=== PATIENT | male | born 1950 | race Caucasian/White ===

== ENCOUNTER 2024-04-05 03:18 | Inpatient (IN) ==
--- OUTSIDE RECORDS SUMMARY | 2024-04-05 03:23 | External Medical Summary | Summary of Care ---
Author Name Unknown Organization [facility] Address [address] [place] [address] Phone [phone] Care Team Providers Care Electronics Technician Name Role Phone Erika Matthews MD Primary Care Provider [phone] Reason for Visit * Reason Comments eRx-Medication Refill Encounter Details Date Type Department Care Team (Late st Contact Info) Description 03/30/2024 Refill Formerly [facility] [address] [place] [address] Erika Matthews MD [address] [place] [address] Acquired hypothyroidism Allergies Active Allergy Reactions Criticality Noted Date Comments Metformin Nausea/vomiting Medium 02/12/2023 Prednisone Nausea/vomiting 07/01/2014 Sulfate 05/19/2007 GI upset documented as of this encounter (statuses as of 03/31/2024) Medications Medication Sig Dispensed Refills Start Date End Date Status ASPIRIN 81 MG PO CHEWIndications:Rou emily medical exam One pill by mouth once a day with food 100 Tab 5 0 Active Additional Information Patient taking differently:[id number], Reported on 08/14/2023 Cholecalciferol (VITAMIN D) 1000 units TabletIndications:V itamin D deficiency 1 tab 4-5 days per week 30 Tab 1 8 Active ONETOUCH DELICA LANCETS 33G MISC Use to test blood sugar up to 4 times per day. May substitute preferred brand. Dx. E 11.9 100 Each 5 9 Active Additional Information Patient not taking.Reported on 08/20/2023 Glucose Blood (Performance LabTOUCH VERIO) STRP Use to test blood sugar up to 4 times per day. May substitute preferred brand. Dx. E 11.9 100 Strip 5 9 Active Additional Information Patient not taking.Reported on 02/19/2024 Tamsulosin HCl 0.4 MG Oral Capsule (Flomax)Indications :Obstructive uropathy Take 1 Capsule by mouth in the morning. 90 Capsule 3 3 Active Additional Information Patient taking differently:0.4 mg OralDINNER, Reported on 08/14/2023 Omeprazole 20 MG Oral Capsule Delayed Release (PriLOSEC) TAKE 1 CAP BY MOUTH DAILY. 1 HOUR BEFORE THE FIRST MEAL OF THE DAY 90 Capsule 3 3 Active Atorvastatin Calcium 40 MG Oral Tablet (Lipitor) Take 1 Tablet by mouth in the morning. 90 Tablet 3 3 Active Additional Information Patient taking differently:40 mg OralQPM-1999, Reported on 08/14/2023 Empagliflozin 25 MG Oral Tablet (Jardiance)Indicati ons:Type 2 diabetes mellitus with chronic kidney disease, without long-term current use of insulin, unspecified CKD stage (HCC) Daily 90 Tablet 3 3 Active Escitalopram Oxalate 10 MG Oral Tablet (Lexapro)Indication s:Anxiety state TAKE 1 TABLET BY MOUTH EVERY DAY 90 Tablet 1 3 Active Lisinopril 20 MG Oral Tablet (Prinivil)Indicatio ns:HTN, goal below 150/90 TAKE 1 TABLET BY MOUTH EVERY DAY 90 Tablet 2 4 Active Azithromycin 500 MG Oral Tablet (Zithromax) Take 1 Tablet by mouth. 0 4 Active Cefdinir 300 MG Oral Capsule (Omnicef) Take 1 Capsule by mouth in the morning. 0 4 Active Albuterol Sulfate HFA 108 (90 Base) MCG/ACT Inhalation Aerosol Solution Inhale 2 Puffs by mouth every 6 hours as needed (sob). 18 g 2 4 Active Levothyroxine Sodium 112 MCG Oral Tablet (Levoxyl)Indication s:Acquired hypothyroidism TAKE 1 TABLET BY MOUTH IN THE MORNING AT LEAST 30 MINUTES PRIOR TO BREAKFAST AND OTHER MEDS 90 Tablet 3 4 Active LORazepam 1 MG Oral Tablet (Ativan)Indications :Anxiety state Take 1 Tablet by mouth 3 times a day as needed for Anxiety. 10 Tablet 0 4 Active Levothyroxine Sodium 112 MCG Oral Tablet (Levoxyl)Indication s:Acquired hypothyroidism TAKE BY MOUTH 1 TABLET IN THE MORNING. (AT LEAST 30 MIN PRIOR TO BREAKFAST OR OTHER MEDS). 90 Tablet 3 3 03/31/20 24 Discontinued documented as of this encounter (statuses as of 03/31/2024) Active Problems Problem Noted Date Diagnosed Date Depression, unspecified 03/27/2024 Chronic kidney disease, stage 3a 05/07/2022 Overview: Per CKD protocol Gastroesophageal reflux disease 04/18/2022 Hypertensive kidney disease with stage 3a chronic kidney disease 10/03/2020 Overview: Per CKD protocol Anxiety state 12/16/2019 Type 2 diabetes mellitus wit h stage 3a chronic kidney disease, without long-term current use of insulin 12/16/2019 Postoperative hypothyroidism 12/16/2019 History of thyroid cancer 03/04/2019 Vitamin D deficiency 03/01/2018 Adjustment disorder with anxious mood 11/07/2016 Dyslipidemia, goal LDL below 100 05/21/2016 HTN, goal below 150/90 01/25/2015 History of tobacco use 06/26/2014 Urge incontinence 07/15/2009 ADVANCE DIRECTIVE INFORMATION 08/08/2005 Overview: No, Advance Directive brochure given to patient at prior appointment. UNILAT INGUINAL HERNIA 03/27/2004 Hypothyroidism 12/10/2003 documented as of this encounter (statuses as of 03/31/2024) Resolved Problems Problem Noted Date Diagnosed Date Resolved Date Type 2 diabetes mellitus wit h stage 3a chronic kidney disease, without long-term current use of insulin 10/28/2023 10/28/2023 Hypertensive kidney disease with chronic kidney disease stage III 09/08/2019 10/06/2020 Overview: Per CKD protocol Kidney disease, chronic, sta ge III (GFR 30-59 ml/min) 04/06/2019 10/09/2019 Overview: Per CKD protocol #1 Bronchitis, complicated 06/26/2014 04/0 03/2019 HTN (hypertension) 04/21/2013 5 H. pylori infection 2007 02/28/20 Overview: treated ABN LIVER FUNCTION STUDY 08/16/200503/2019 Cough 02/28/2005 02/27/2019 Unspecified viral infection, in conditions classified elsewhere and of unspecified site 02/28/2005 12/18/2008 ACUTE URI NOS 02/28/2005 12/18/2008 Esophageal reflux 03/24/2002 01/29/2023 Overview: DUPLICATE MALIGN NEOPL THYROID 019 documented as of this encounter (statuses as of 03/31/2024) Immunizations Name Administration Dates Next Due COVID-19 mRNA, LNP-s, No Pre serve, 2-Dose Series ([employer]) 09/04/2023,09/10/2021,02/18/2021,11/2020 Covid-19, Mrna, Lnp-s, Pf, B ivalent, 30 Mcg, IM, 12 yrs and above (Pfizer) 09/18/2022 Pneumococcal Conjugate Vacc, 13 Valent (Prevnar) 03/20/2017 Pneumococcal Polysaccharide PPV23 (Pneumovax) 10/12/2019,10/27/2007 Seasonal Influenza, PF, 6 M & above, IM , (FluLaval or Fluzone) 08/09/2020,09/08/2019,08/07/2018,12/2016 Seasonal Influenza, Quadriva lent Hd (Fluzone Hd) 07/30/2023,08/13/2022,08/14/2021 Seasonal Influenza, Quadriva lent, No Preserve, IM 09/25/2016,09/07/2015 Seasonal Influenza, Split, I IV3, With Preserve, Inj 09/07/2014,08/15/2013,08/06/2012,07/26,09/22/2010,09/10/2008,09/25/20 07 09/07/2015 TDAP (age 11 and older)(Adacel) 09/06/2018,06/02 Varicella Zoster Vaccine (Adult) 07/07/2012 Zoster Vaccine Recombinant (Shingrix) 02/07/2022 ,12/16/2019 documented as of this encounter Social History Tobacco Use Types Packs/Day Years Used Date Smoking Tobacco: Former Cigarettes Q uit: 06/04/2012 Passive Smoke Exposure: Never Smokeless Tobacco: Never Alcohol Use Standard Drinks/Week Comments Yes 0 (1 standard drink = 0.6 oz pur e alcohol) beer 2 a few times per wk PHQ-2 Answer Date Recorded PHQ Adult Total Score 0 03/19/2024 Hunger Vital Sign Answer Date Recorded Within the past 12 months, y ou worried that your food would run out before you got the money to buy more. Patient declined Within the past 12 months, t he food you bought just didn't last and you didn't have money to get more. Patient declined Sex and Gender Information Value Date Recorded Sex Assigned at Male 09/08/2019 8:12 AM EDT Gender Identity Male 09/08/2019 8:12 AM EDT Sexual Orientation Straight 09/08/2019 8: 12 AM EDT Job Start Date Occupation Industry Not on file Not on file Not on file documented as of this encounter Miscellaneous Notes * Telephone Encounter - Fran Mendez RPh - 03/31/2024 10:18 AM EDTSigned Prescriptions: Disp Refills Levothyroxine Sodium 112 MCG Oral Tablet (*90 Tab*3 Sig: TAKE 1 TABLET BY MOUTH IN THE MORNING AT LEAST 30 MINUTES PRIOR TO BREAKFAST AND OTHER MEDSAuthorizing Provider: ERIKA MATTHEWS User: FRAN MENDEZ documented in this encounter Plan of Treatment Upcoming Encounters Date Type Department Care Team (Late st Contact Info) Description 04/01/2024 11:40 AM EDT Office Visit [address] [address] Erika Matthews MD [address], [place] [id number] 06/12/2024 10:45 AM EDT Cardiac Studies Cardiac Studies, [place] [address] [place] [facility] [place] [address] 08/26/2024 8:20 AM EDT Office Visit Family Practice, [place] [address] [place] [facility] [id number] Erika Matthews MD [address] [place] [address] Health Maintenance Due Date Last Done Comments Cologuard 1996 Fecal Occult Blood Test 05/16/2003 05/16/2002 Sigmoidoscopy 11/03/2007 11/03/2002 COVID-19 Vaccine ( season) 2023 09/04/2023, 09/18/2022, 09/10/2021, Additional history exists Diabetic Eye Exam 06/03/2024 06/03/2023, , 05/08/2023, Additional history exists CKD PHOS USE SMARTSET 59440 08/21/202407/27, 04/18/2022, 01/06/2020, Additional history exists HbA1c 08/21/2024 02/19/2024, 07/27, 02/12/2023, Additional history exists GFR 09/27/2024 03/27/2024, 01/24, 10/26/2023, Additional history exists Albumin/Creatinine Ratio 02/18/2025 024, 02/12/2023, 04/18/2022, Additional history exists Diabetic Foot Exam 02/18/2025 02/19/2024, 0 02/12/2023, 09/08/2021, Additional history exists TSH 02/18/2025 02/19/2024, 09/26, 02/12/2023, Additional history exists CKD HGB USE SMARTSET 81900 03/27/202503/27, 03/27/2024, 02/19/2024, Additional history exists Colonoscopy 08/20/2026 08/20/2023, 07/27, 07/28/2020, Additional history exists Colorectal Cancer Screening 08/20/2026 Lipid Panel 02/13/2028 02/12/2023, 03/26, 04/18/2021, Additional history exists DTaP,Tdap,and Td Vaccines (3 - Td or Tdap) 09/06/2028 09/06/2018, 06/02/2008 AAA Screening Completed 10/01/2017 Pneumococcal Vaccine: 65+ Years Completed 10/12/2019, 03/20/2017, 10/27/2007 Zoster Vaccines Completed 02/07/2022, 11/26, 07/07/2012 Influenza Vaccine (FLU shot) Completed 07/30/2023, 08/13/2022, 08/14/2021, Additional history exists RETIRED - COLONOSCOPY-EVERY 5 YRS AGES 18-100 Discontinued 08/20/2023, 08/20/2023, 07/28/2020, Additional history exists GARDASIL-HPV IMMUNIZATION SERIES Aged Out No longer eligible based on patient's age to complete this topic Hepatitis B Aged Out No longer eligi ble based on patient's age to complete this topic MENINGOCOCCAL (MENACTRA/MENVEO) Aged Out No longer eligible based on patient's age to complete this topic documented as of this encounter Medical Devices Not on filedocumented as of this encounter Visit Diagnoses Diagnosis Acquired hypothyroidism Unspecified hypothyroidism documented in this encounter Care Teams Electronics Technician Relationship Specialty Start Date End Date Erika Matthews MD [address] [place] [address] PCP - General 11/29/99 documented as of this encounter
--- OUTSIDE RECORDS SUMMARY | 2024-04-05 03:23 | External Medical Summary | Summary of Care ---
Author Name Unknown Organization [facility] Address [address] [place] [address] Phone [phone] Care Team Providers Care Security Test Engineer Name Role Phone Evaristo Matthews MD Primary Care Provider [phone] Reason for Visit * Reason Comments Emergency Department Follow-Up Patient i s here today for an ED follow up. Patient states he is still having anxiety that is causing him to "jump up" in the middle of the night and he is lacking sleep. Patient states he feels bloated all of the time and he is having stomach "attacks" Encounter Details Date Type Department Care Team (Late st Contact Info) Description 04/01/2024 11:40 AM EDT Office Visit [facility] [address] [place] [address] Evaristo Matthews MD [address] [place] [address] Insomnia, unspecified type*; Anxiety state Allergies Active Allergy Reactions Criticality Noted Date Comments Metformin Nausea/vomiting Medium 02/12/2023 Prednisone Nausea/vomiting 07/01/2014 Sulfate 05/19/2007 GI upset documented as of this encounter (statuses as of 04/01/2024) Medications Medication Sig Dispensed Refills Start Date End Date Status ASPIRIN 81 MG PO CHEWIndications:Rout ine medical exam One pill by mouth once a day with food 100 Tab 5 05/24/2010 Active Additional Information Patient taking differently:[id number], Reported on 08/14/2023 Cholecalciferol (VITAMIN D) 1000 units TabletIndications:Vi tamin D deficiency 1 tab 4-5 days per week 30 Tab 1 03/01/2018 Active ONETOUCH DELICA LANCETS 33G MISC Use to test blood sugar up to 4 times per day. May substitute preferred brand. Dx. E 11.9 100 Each 5 09/23/2019 Active Additional Information Patient not taking.Reported on 08/20/2023 Glucose Blood (ONETOUCH VERIO) STRP Use to test blood sugar up to 4 times per day. May substitute preferred brand. Dx. E 11.9 100 Strip 5 09/23/2019 Active Additional Information Patient not taking.Reported on 02/19/2024 Tamsulosin HCl 0.4 MG Oral Capsule (Flomax)Indications: Obstructive uropathy Take 1 Capsule by mouth in the morning. 90 Capsule 3 02/12/2023 Active Additional Information Patient taking differently:0.4 mg OralDINNER, Reported on 08/14/2023 Omeprazole 20 MG Oral Capsule Delayed Release (PriLOSEC) TAKE 1 CAP BY MOUTH DAILY. 1 HOUR BEFORE THE FIRST MEAL OF THE DAY 90 Capsule 3 02/25/2023 Active Atorvastatin Calcium 40 MG Oral Tablet (Lipitor) Take 1 Tablet by mouth in the morning. 90 Tablet 3 03/03/2023 Active Additional Information Patient taking differently:40 mg OralQ-1999, Reported on 08/14/2023 Empagliflozin 25 MG Oral Tablet (Jardiance)Indicatio ns:Type 2 diabetes mellitus with chronic kidney disease, without long-term current use of insulin, unspecified CKD stage (HCC) Daily 90 Tablet 3 08/21/2023 Active Escitalopram Oxalate 10 MG Oral Tablet (Lexapro)Indications :Anxiety state TAKE 1 TABLET BY MOUTH EVERY DAY 90 Tablet 1 11/08/2023 Active Lisinopril 20 MG Oral Tablet (Prinivil)Indication s:HTN, goal below 150/90 TAKE 1 TABLET BY MOUTH EVERY DAY 90 Tablet 2 12/14/2023 Active Azithromycin 500 MG Oral Tablet (Zithromax) Take 1 Tablet by mouth. 0 03/15/2024 Active Cefdinir 300 MG Oral Capsule (Omnicef) Take 1 Capsule by mouth in the morning. 0 03/15/2024 Active Albuterol Sulfate HFA 108 (90 Base) MCG/ACT Inhalation Aerosol Solution Inhale 2 Puffs by mouth every 6 hours as needed (sob). 18 g 2 03/19/2024 Active Levothyroxine Sodium 112 MCG Oral Tablet (Levoxyl)Indications :Acquired hypothyroidism TAKE 1 TABLET BY MOUTH IN THE MORNING AT LEAST 30 MINUTES PRIOR TO BREAKFAST AND OTHER MEDS 90 Tablet 3 03/31/2024 Active LORazepam 1 MG Oral Tablet (Ativan)Indications: Anxiety state Take 1 Tablet by mouth 3 times a day as needed for Anxiety. 10 Tablet 0 03/30/2024 Active traZODone HCl 50 MG Oral Tablet (Desyrel)Indications :Insomnia, unspecified type Take 1 Tablet by mouth at bedtime. May increase to 2 tabs after 2 weeks if needed for sleep 90 Tablet 5 04/01/2024 Active busPIRone HCl 10 MG Oral Tablet (Buspar)Indications: Anxiety state Take 1 Tablet by mouth 3 times a day as needed for Anxiety. 90 Tablet 3 04/01/2024 Active documented as of this encounter (statuses as of 04/01/2024) Active Problems Problem Noted Date Diagnosed Date [...] as of this encounter (statuses as of 04/01/2024) Resolved Problems Problem Noted Date Diagnosed Date Resolved Date Type 2 diabetes mellitus wit h stage 3a chronic kidney disease, without long-term current use of insulin 10/28/2023 10/28/2023 Hypertensive kidney disease with chronic kidney disease stage III 09/08/2019 10/06/2020 Overview: Per CKD protocol Kidney disease, chronic, sta ge III (GFR 30-59 ml/min) 04/06/2019 10/09/2019 Overview: Per CKD protocol #1 Bronchitis, complicated 06/26/201403/2019 HTN (hypertension) 04/21/2013 5 H. pylori infection 2007 02/28/20 Overview: treated ABN LIVER FUNCTION STUDY 08/16/200503/2019 Cough 02/28/2005 02/27/2019 Unspecified viral infection, in conditions classified elsewhere and of unspecified site 02/28/2005 12/18/2008 ACUTE URI NOS 02/28/2005 12/18/2008 Esophageal reflux 03/24/2002 01/29/2023 Overview: DUPLICATE MALIGN NEOPL THYROID 019 documented as of this encounter (statuses as of 04/01/2024) Immunizations Name Administration Dates Next Due COVID-19 mRNA, LNP-s, No Pre serve, 2-Dose Series ([employer]) 09/04/2023,09/10/2021,02/18/2021,11/2020 Covid-19, Mrna, Lnp-s, Pf, B ivalent, [...] on file documented as of this encounter Last Filed Vital Signs Vital Sign Reading Time Taken Comments Blood Pressure 112/62 04/01/2024 11:16 AM EDT Pulse 95 04/01/2024 11:16 AM EDT Temperature 36.6 C (97.8 F) 04/01/2024 11:16 AM E DT Respiratory Rate 16 04/01/2024 11:16 AM EDT Oxygen Saturation 97% 04/01/2024 11:16 AM EDT Inhaled Oxygen Concentration - - Weight 91.7 kg (202 lb 3.2 oz) 04/01/2024 11:16 AM EDT Height 175.3 cm (5' 9") 04/01/2024 11:16 AM EDT Body Mass Index 29.86 04/01/2024 11:16 AM EDT documented in this encounter Progress Notes * Evaristo Matthews MD - 04/01/2024 11:26 AM EDT Subjective: Jones Celaya is a 73 year old male. Chief Complaint Patient presents with Emergency Department Follow-Up Patient is here today for an ED follow up. Patient states he is still having anxiety that is causing him to "jump up" in the middle of the night and he is lacking sleep. Patient states he feels bloated all of the time and he is having stomach "attacks" HPI: 73-year-old seen today as a follow-up from [facility] ER visit. He was seen with ultimately was thought to be anxiety type of symptoms. He describes difficulty sleeping and some nights where he may initially get short amount of sleep and then he awakens and can not fall back asleep all night. He isat the point where he does not like when daytime ends and dark begins. He is aware some anxiety type symptoms through the day but it certainly seems to be magnified at night. He does remain on escitalopram 10 mg a day. He has continued his regular exercise/lifting routine 3 days a week. He is also mowing the lawn. He drinks alcohol Um rarely-last beer was 3 months ago although he may drink on a weekly basis for awhile. Patient Active Problem List Diagnosis Code Hypothyroidism E03.9 UNILAT INGUINAL HERNIA K40.90 ADVANCE DIRECTIVE INFORMATION Urge incontinence N39.41 History of tobacco use Z87.891 HTN, goal below 150/90 I10 Dyslipidemia, goal LDL below 100 E78.5 Adjustment disorder with anxious mood F43.22 Vitamin D deficiency E55.9 History of thyroid cancer Z85.850 Anxiety state F41.1 Type 2 diabetes mellitus with stage 3a chronic kidney disease, without long-term current use of insulin (HCC) E11.22, N18.31 Postoperative hypothyroidism E89.0 Hypertensive kidney disease with stage 3a chronic kidney disease I12.9, N18.31 Gastroesophageal reflux disease K21.9 Chronic kidney disease, stage 3a (HCC) N18.31 Depression, unspecified F32.A Current Outpatient Medications Medication Sig Dispense Refill ASPIRIN 81 MG PO CHEW One pill by mouth once a day with food (Patient taking differently: Take by mouth every morning.) 100 Tab 5 Cholecalciferol (VITAMIN D) 1000 units Tablet 1 tab 4-5 days per week 30 Tab 1 Tamsulosin HCl 0.4 MG Oral Capsule (Flomax) Take 1 Capsule by mouth in the morning. (Patient takingdifferently: Take 1 Capsule by mouth daily with dinner.) 90 Capsule 3 Omeprazole 20 MG Oral Capsule Delayed Release (PriLOSEC) TAKE 1 CAP BY MOUTH DAILY. 1 HOUR BEFORE THE FIRST MEAL OF THE DAY 90 Capsule 3 Atorvastatin Calcium 40 MG Oral Tablet (Lipitor) Take 1 Tablet by mouth in the morning. (Patient taking differently: Take 1 Tablet by mouth every evening.) 90 Tablet 3 Empagliflozin 25 MG Oral Tablet (Jardiance) Daily 90 Tablet 3 Escitalopram Oxalate 10 MG Oral Tablet (Lexapro) TAKE 1 TABLET BY MOUTH EVERY DAY 90 Tablet 1 Lisinopril 20 MG Oral Tablet (Prinivil) TAKE 1 TABLET BY MOUTH EVERY DAY 90 Tablet 2 Albuterol Sulfate HFA 108 (90 Base) MCG/ACT Inhalation Aerosol Solution Inhale 2 Puffs by mouth every 6 hours as needed (sob). 18 g 2 Levothyroxine Sodium 112 MCG Oral Tablet (Levoxyl) TAKE 1 TABLET BY MOUTH IN THE MORNING AT LEAST 30 MINUTES PRIOR TO BREAKFAST AND OTHER MEDS 90 Tablet 3 LORazepam 1 MG Oral Tablet (Ativan) Take 1 Tablet by mouth 3 times a day as needed for Anxiety. 10 Tablet 0 traZODone HCl 50 MG Oral Tablet (Desyrel) Take 1 Tablet by mouth at bedtime. May increase to 2 tabsafter 2 weeks if needed for sleep 90 Tablet 5 busPIRone HCl 10 MG Oral Tablet (Buspar) Take 1 Tablet by mouth 3 times a day as needed for Anxiety. 90 Tablet 3 ONETOUCH DELICA LANCETS 33G MISC Use to test blood sugar up to 4 times per day. May substitute preferred brand. Dx. E 11.9 (Patient not taking: Reported on 08/20/2023) 100 Each 5 Glucose Blood (ONETOUCH VERIO) STRP Use to test blood sugar up to 4 times per day. May substitute preferred brand. Dx. E 11.9 (Patient not taking: Reported on 02/19/2024) 100 Strip 5 Azithromycin 500 MG Oral Tablet (Zithromax) Take 1 Tablet by mouth. (Patient not taking: Reported on 03/19/2024) Cefdinir 300 MG Oral Capsule (Omnicef) Take 1 Capsule by mouth in the morning. (Patient not taking:Reported on 03/23/2024) No current facility-administered medications for this visit. Review of patient's allergies indicates: Allergen Reactions Metformin Nausea/vomiting Prednisone Nausea/vomiting Sulfate GI upset Objective: BP 112/62 | Pulse 95 | Temp 36.6 C (97.8 F) (Tympanic) | Resp 16 | Ht 1.753 m (5' 9") | Wt 91.7kg (202 lb 3.2 oz) | SpO2 97% | BMI 29.86 kg/m | BSA 2.11 m Physical Exam: CONST: alert, pleasant, no acute distress HEAD: normocephalic, atraumatic OROPHARYNX: clear, no swelling or erythema, moist CV: regular rate and rhythm, no murmur CHEST: clear to auscultation bilaterally, no rales or wheezing ABD: soft, non tender, non distended, no masses or hepatosplenomegaly EXT: no edema, no joint swelling or deformities, NEURO: AAOx3, no gross focal deficits, cerebellar signs normal, affect appropriate MENTAL STATUS: no evidence of thought disorder, no delusional thought, no evidence of paranoia, thought is non-tangential. Mood-anxious and depressed. ASSESSMENT/PLAN: Insomnia, unspecified type (Primary)-exact etiology is unclear but I am sure that his overall anxiety disorder is major component. - traZODone HCl 50 MG Oral Tablet (Desyrel); Take 1 Tablet by mouth at bedtime. May increase to 2 tabs after 2 weeks if needed for sleep He is instructed to take 50 mg every day. If he does not find much benefit with 50 mg nightly, after 2 weeks he can increase to 2 tablets or 100 mg daily. Anxiety state-add BuSpar 10 mg that he can use up to 3 times a day. continue the Lexapro 10 mg daily. I told him that if he does not see improvement in overall anxiety symptoms over the next several weeks, he could increase the Lexapro to 15 mg daily. - busPIRone HCl 10 MG Oral Tablet (Buspar); Take 1 Tablet by mouth 3 times a day as needed for Anxiety. Hx thyroid cancer. Pt had normal TSH done 2 months ago. HTN - controlled. No change needed. Um I need to see him back again in about 2 months. Evaristo Matthews MD documented in this encounter Nursing Notes * Adilia Stewart LPN - 04/01/2024 11:19 AM EDT The patient has been properly identified by confirmation of name and date of . Chief Complaint Patient presents with Emergency Department Follow-Up Patient is here today for an ED follow up. Patient states he is still having anxiety that is causing him to "jump up" in the middle of the night and he is lacking sleep. Patient states he feels bloated all of the time and he is having stomach "attacks" documented in this encounter Plan of Treatment Upcoming Encounters Date Type Department Care Team (Late st Contact Info) Description 06/12/2024 10:45 AM EDT Cardiac Studies Cardiac Studies, [place] [address], [place] [id number] 06/22/2024 8:20 AM EDT Office Visit [place] [address] [place] [phone] Evaristo Matthews MD [address] [place] [address] 08/26/2024 8:20 AM EDT Office Visit [facility] [address] [place] [phone] Evaristo Matthews MD [address], [place] [id number] Health Maintenance Due Date Last Done Comments Cologuard 1996 Fecal Occult Blood Test 05/16/2003 05/16/2002 Sigmoidoscopy 11/03/2007 11/03/2002 COVID-19 Vaccine ( season) 2023 09/04/2023, 09/18/2022, 09/10/2021, Additional history exists Diabetic Eye Exam 06/03/2024 06/03/2023, , 05/08/2023, Additional history exists CKD PHOS USE SMARTSET 06734 08/21/202407/27, 04/18/2022, 01/06/2020, Additional history exists HbA1c 08/21/2024 02/19/2024, 07/27, 02/12/2023, Additional history exists GFR 09/27/2024 03/27/2024, 01/24, 10/26/2023, Additional history exists Albumin/Creatinine Ratio 02/18/2025 024, 02/12/2023, 04/18/2022, Additional history exists Diabetic Foot Exam 02/18/2025 02/19/2024, 0 02/12/2023, 09/08/2021, Additional history exists TSH 02/18/2025 02/19/2024, 09/26, 02/12/2023, Additional history exists CKD HGB USE SMARTSET 78988 03/27/202503/27, 03/27/2024, 02/19/2024, Additional history exists Colonoscopy [...] as of this encounter Visit Diagnoses Diagnosis Insomnia, unspecified type- Primary Anxiety state Anxiety state, unspecified documented in this encounter Care Teams Security Test Engineer Relationship Specialty Start Date End Date Evaristo Matthews MD [address] [place] [address] PCP - General 11/29/99 documented as of this encounter
--- OUTSIDE RECORDS SUMMARY | 2024-04-05 03:23 | External Medical Summary | Summary of Care ---
Author Name Unknown Organization [facility] Address [address] [place] [address] Phone [phone] Care Team Providers Care Deposition Reporter Name Role Phone Evaristo Matthews MD Primary Care Provider [phone] Reason for Visit * Reason Onset Date Comments Med Request 03/30/2024 Encounter Details Date Type Department Care Team (Late st Contact Info) Description 03/30/2024 Telephone [facility] [address] [place] [address] Evaristo Matthews MD [address] [place] [address] Med Request Allergies Active Allergy Reactions Criticality Noted Date Comments Metformin Nausea/vomiting Medium 02/12/2023 Prednisone Nausea/vomiting 07/01/2014 Sulfate 05/19/2007 GI upset documented as of this encounter (statuses as of 03/30/2024) Medications Medication Sig Dispensed Refills Start Date End Date Status ASPIRIN 81 MG PO CHEWIndications:Rout ine medical exam One pill by mouth once a day with food 100 Tab 5 05/24/2010 Active Additional Information Patient taking differently:[id number], Reported on 08/14/2023 Cholecalciferol (VITAMIN D) 1000 units TabletIndications:Vi tamin D deficiency 1 tab 4-5 days per week 30 Tab 1 03/01/2018 Active ONETOUCH DELICA LANCETS 33G MISC Use to test blood sugar up to 4 times per day. May substitute preferred brand. Dx. E 11.9 100 Each 5 09/23/2019 Active Additional Information Patient not taking.Reported on 08/20/2023 Glucose Blood (InHomeVestUCH VERIO) STRP Use to test blood sugar [...] taking differently:40 mg OralQPM-1999, Reported on 08/14/2023 Levothyroxine Sodium 112 MCG Oral Tablet (Levoxyl)Indications :Acquired hypothyroidism TAKE BY MOUTH 1 TABLET IN THE MORNING. (AT LEAST 30 MIN PRIOR TO BREAKFAST OR OTHER MEDS). 90 Tablet 3 03/31/2023 Active Empagliflozin 25 MG Oral Tablet (Jardiance)Indicatio ns:Type [...] needed (sob). 18 g 2 03/19/2024 Active LORazepam 1 MG Oral Tablet (Ativan)Indications: Anxiety state Take 1 Tablet by mouth 3 times a day as needed for Anxiety. 10 Tablet 0 03/30/2024 Active documented as of this encounter (statuses as of 03/30/2024) Active Problems Problem Noted Date Diagnosed Date [...] as of this encounter (statuses as of 03/30/2024) Resolved Problems Problem Noted Date Diagnosed Date [...] 04/21/2013 5 H. pylori infection 2007 02/28/20 19 Overview: treated ABN LIVER FUNCTION STUDY 08/16/200503/2019 Cough 02/28/2005 02/27/2019 Unspecified viral infection, in conditions classified elsewhere and of unspecified site 02/28/2005 12/18/2008 ACUTE URI NOS 02/28/2005 12/18/2008 Esophageal reflux 03/24/2002 01/29/2023 Overview: DUPLICATE MALIGN NEOPL THYROID 019 documented as of this encounter (statuses as of 03/30/2024) Immunizations Name Administration Dates Next Due COVID-19 mRNA, LNP-s, No Pre serve, 2-Dose Series ([employer]) 09/04/2023,09/10/2021,02/18/2021,11/2020 Covid-19, Mrna, Lnp-s, Pf, B ivalent, 30 Mcg, IM, 12 yrs and above ([employer]) 09/18/2022 Pneumococcal Conjugate Vacc, 13 Valent (Prevnar) 03/20/2017 Pneumococcal Polysaccharide PPV23 (Pneumovax) 10/12/2019,10/27/2007 Seasonal Influenza, PF, 6 M & above, IM , (FluLaval or Fluzone) 08/09/2020,09/08/2019,08/07/2018,12/2016 Seasonal Influenza, Quadriva lent Hd (Fluzone Hd) 07/30/2023,08/13/2022,08/14/2021 Seasonal Influenza, Quadriva lent, No Preserve, IM 09/25/2016,09/07/2015 Seasonal Influenza, Split, I IV3, With Preserve, Inj 09/07/2014,08/15/2013,08/06/2012,07/26,09/22/2010,09/10/2008,09/25/20 07,10/02/2005,09/30/2003,09/28/2002 09/07/2015 TDAP (age 11 and older)(Adacel) 09/06/2018,06/02 [...] encounter Miscellaneous Notes * Telephone Encounter - Hamzah Buchanan RPh - 03/30/2024 11:18 AM EDT Advised it is OK to be on both meds. Ativan is as needed for anxiety. Lexapro for chronic management of anxiety. Patient is agreeable and understanding. ThanksHamzah PharmD Clinical Pharmacist [facility](formerly telepharmacy) [phone] 03/30/2024, 11:19 AM * Telephone Encounter - Carmencita Pratt PHARM Tech - 03/30/2024 11:14 AM EDT Pt called stating he was prescribed lorazepam but is currently on lexapro. Pt wants to know if he is to be taking both of them Warm transferred to bettye Goodson. Carmencita Arroyo Special Education Director [facility] ([facility]) 03/30/2024,11:15 AM documented in this encounter Plan of Treatment Upcoming Encounters Date Type Department Care Team (Late st Contact Info) Description 04/01/2024 11:40 AM EDT [facility] [place] [address] [facility] [address] Evaristo Matthews MD [address] [place] [facility] [place] [address] 06/12/2024 10:45 AM EDT Cardiac Studies Cardiac Studies, [place] [address] [facility] [place] [id number] 08/26/2024 8:20 AM EDT Office [facility] [place] [address] [facility] [address] Evaristo Matthews MD [address] [place] [facility] [place] [address] Health Maintenance Due Date Last Done Comments Cologuard 1996 Fecal Occult Blood Test 05/16/2003 05/16/2002 Sigmoidoscopy 11/03/2007 11/03/2002 COVID-19 Vaccine ( season) 2023 09/04/2023, 09/18/2022, 09/10/2021, Additional history exists Diabetic Eye Exam 06/03/2024 06/03/2023, , 05/08/2023, Additional history exists CKD PHOS USE SMARTSET 38650 08/21/202407/27, 04/18/2022, 01/06/2020, Additional history exists HbA1c 08/21/2024 02/19/2024, 07/27, 02/12/2023, Additional history exists GFR 09/27/2024 03/27/2024, 01/24, 10/26/2023, Additional history exists Albumin/Creatinine Ratio 02/18/2025 024, 02/12/2023, 04/18/2022, Additional history exists Diabetic Foot Exam 02/18/2025 02/19/2024, 0 02/12/2023, 09/08/2021, Additional history exists TSH 02/18/2025 02/19/2024, 09/26, 02/12/2023, Additional history exists CKD HGB USE SMARTSET 52205 03/27/202503/27, 03/27/2024, 02/19/2024, Additional history exists Colonoscopy [...] Not on filedocumented as of this encounter Care Teams Deposition Reporter Relationship Specialty Start Date End Date Evaristo Matthews MD [address] [place] [address] PCP - General 11/29/99 documented as of this encounter
--- OUTSIDE RECORDS SUMMARY | 2024-04-05 03:23 | External Medical Summary | Summary of Care ---
Author Name Unknown Organization [facility] Address [address] [place] [address] Phone [phone] Care Team Providers Care Grievance Coordinator Name Role Phone Evaristo Matthews MD Primary Care Provider [phone] Reason for Visit * Reason Onset Date Comments Med Request 03/30/2024 Encounter Details Date Type Department Care Team (Late st Contact Info) Description 03/30/2024 Telephone Located Within [facility] [address] [place] [address] Evaristo Matthews MD [address] [place] [address] Med Request Allergies Active Allergy [...] 5 05/24/2010 Active Additional Information Patient taking differently:[id number], Reported on 08/14/2023 Cholecalciferol (VITAMIN D) 1000 units TabletIndications:Vi tamin D deficiency 1 tab 4-5 days per week 30 Tab 1 03/01/2018 Active ONETOUCH DELICA LANCETS 33G MISC Use to test blood sugar up to 4 times per day. May substitute preferred brand. Dx. E 11.9 100 Each 5 09/23/2019 Active Additional Information Patient not taking.Reported on 08/20/2023 Glucose Blood (Rebel MonkeyUCH VERIO) STRP Use to test blood sugar [...] mRNA, LNP-s, No Pre serve, 2-Dose Series (Foremost) 09/04/2023,09/10/2021,02/18/2021,11/2020 Covid-19, Mrna, Lnp-s, Pf, B ivalent, 30 Mcg, IM, 12 yrs and above (Foremost) 09/18/2022 Pneumococcal Conjugate Vacc, 13 Valent (Prevnar) [...] Clinical Pharmacist [facility](formerly telepharmacy) [phone] 03/30/2024, 11:19 AM * Telephone Encounter - Carmencita Pratt PHARM Tech - 03/30/2024 11:14 AM EDT Pt called stating he was prescribed lorazepam but is currently on lexapro. Pt wants to know if he is to be taking both of them Warm transferred to bettye Goodson. Carmencita Arroyo Dry Pan Charger [facility] ([facility]) 03/30/2024,11:15 AM documented in this encounter Plan of Treatment Upcoming Encounters Date Type Department Care Team (Late st Contact Info) Description 04/01/2024 11:40 AM EDT Office Visit [facility] [place] [address] [facility] [address] Evaristo Matthews MD [address] [place] [facility] [place] [address] 06/12/2024 10:45 AM EDT Cardiac Studies [facility], [place] [address] [facility] [place] [id number] 08/26/2024 8:20 AM EDT Office Visit [facility] [place] [address] [facility] [facility] [address] Evaristo Matthews MD [address] [place] [facility] [place] [address] Health Maintenance Due Date Last Done Comments Cologuard 1996 Fecal Occult Blood Test 05/16/2003 05/16/2002 Sigmoidoscopy 11/03/2007 11/03/2002 COVID-19 Vaccine ( season) 2023 09/04/2023, 09/18/2022, 09/10/2021, Additional history exists Diabetic Eye Exam 06/03/2024 06/03/2023, , 05/08/2023, Additional history exists CKD PHOS USE SMARTSET 27111 08/21/202407/27, 04/18/2022, 01/06/2020, Additional history exists HbA1c 08/21/2024 02/19/2024, 07/27, 02/12/2023, Additional history exists GFR 09/27/2024 03/27/2024, 01/24, 10/26/2023, Additional history exists Albumin/Creatinine Ratio 02/18/2025 024, 02/12/2023, 04/18/2022, Additional history exists Diabetic Foot Exam 02/18/2025 02/19/2024, 0 02/12/2023, 09/08/2021, Additional history exists TSH 02/18/2025 02/19/2024, 09/26, 02/12/2023, Additional history exists CKD HGB USE SMARTSET 01513 03/27/202503/27, 03/27/2024, 02/19/2024, Additional history exists Colonoscopy [...] filedocumented as of this encounter Care Teams Grievance Coordinator Relationship Specialty Start Date End Date Evaristo Matthews MD [address] [place] [address] PCP - General 11/29/99 documented as of this encounter
--- NOTE | 2024-04-05 03:40 | Emergency Department Note ---
Impression & Plan Breathlessness, Anxiety, Pulmonary edema ED Provider Note Provider: Herve Dhaliwal MD DATE OF SERVICE: 04/05/2024 CHIEF COMPLAINT: Anxiety attacks HISTORY OF PRESENT ILLNESS: Patient is a 73-year-old gentleman history of diabetes, hypertension, GERD, and anxiety presenting here reporting has been having issues over the past several weeks. Has been following his primary doctor and has been using some Lexapro, trazodone, BuSpar, and as needed Ativan to help with symptoms with not great improvement. At times during these attacks does feel little bit short of breath but denies significant pain. Has issues with sleeping. Did have pneumonia and COVID recently completed course of antibiotics. Still at times little short of breath. Overnight got up to use the bathroom and began to have racing thoughts and feel anxious. Little bit of chest discomfort with this. Took some Tylenol and things improved now. Does not feel severely anxious right now. Denies any SI or HI to me. States he did contact his doctor's office Saturday or but has not heard back yet. No significant leg swelling reported. No syncope. PAST MEDICAL HISTORY: As noted above MEDICATIONS: Reviewed home medication SOCIAL HISTORY: Non-smoker PHYSICAL EXAM: GENERAL: alert and oriented in no acute distress on stretcher Head: normocephalic and atraumatic EYES: No injection, discharge or icterus. NECK: Trachea midline. ENT: Mucous membranes pink and moist. LUNGS: Airway patent. No retractions. Breath sounds clear with diminished bases appreciated however. HEART: Regular rate and rhythm. No chest wall tenderness ABDOMEN: Soft and non-tender, without guarding or rebound. SKIN: Acyanotic, warm, dry, without rashes EXTREMITIES: Without swelling, tenderness or deformity NEUROLOGICAL: No focal deficits. No aphasia. No facial droop or slurred speech. Normal strength and tone in the extremities. Sensation to gross touch normal. Ambulatory. Psych: Denies SI or HI. Not responding to external stimuli. Normal affect. No hallucinations reported. Mildly anxious. EK bpm normal sinus rhythm. No PVC or PAC. No acute ST segment elevation or depression with a QTc 411 CONTINUOUS CARDIAC MONITORING: was ordered and showed a heart rate of 70s-80s bpm in normal sinus rhythm 1 view chest x-ray per my interpretation: Diffuse mid lower airspace opacities possibly pulmonary edema without evidence of pneumothorax. No free air. Patient's laboratory studies and imaging reviewed. Differential includes Reactive airway disease, pneumonia, pneumothorax, COPD, CHF, infections, cardiac ischemia, pulmonary embolism, musculoskeletal, gastrointestinal, anxiety as well as other pathologies. IMPRESSION/MEDICAL DECISION MAKING: Patient well-appearing. Vitals are reassuring without significant tachycardia or hypoxia or tachypnea. Did have COVID and pneumonia recently and was reported little bit of shortness of breath and chest discomfort will complete an x-ray EKG and basic blood work. However have a lower suspicion for ACS. Doubt PE or dissection given his well appearance at this time. No signs of significant fluid overload on clinical exam. Chest x-ray completed is concerning for some pulmonary opacities possibly pulmonary edema. Reviewed CT scan report from March 15 without PE findings possibly of pneumonia as well as some pulmonary edema. May explain some of his breathing issues. Patient denies any SI or HI. Anxiety episodes of time and racing thoughts but no nightmares reported. Does not appear to be hallucinating. Has been started on several medications by PCP without real improvement at this time but has not been to a long period. Do not feel inpatient be that beneficial for him in regards to his anxiety component. Blood work here without significant anemia or leukocytosis. No severe electrolyte abnormalities signs of acute renal dysfunction. No severe LFT abnormalities. Troponin normal. Doubt ACS. Based on the abnormal chest x-ray today discussed with the patient possibly proceeding with repeat CT of the chest with I doubt its PE versus bring the patient in for observation and further cardiac workup given his symptoms. Does state that he was supposed to have outpatient cardiac follow-up at some point as he detected a new murmur recently. Interestingly BNP not severely elevated here. Question if maybe some of his anxiety is more related to his pulmonary edema. Patient was agreeable to come in for evaluation to the hospital and hospitalist contacted. Do not believe this is infectious given his lack of fever or leukocytosis at this point. Again doubt acute VTE at this time. DIAGNOSIS: Shortness of breath, anxiety, pulmonary edema DISPOSITION: Being evaluated in the hospitalist Patient was agreeable with this plan. Past Med/Surg History Medical History Hypercholesterolemia GERD (gastroesophageal reflux disease) Hypertension Depression Diabetes Social History Smoking Status: Never smoker Tobacco Type: Cigarettes Preferred Language: Estonian Feels Safe at Home: Yes Allergies Allergies Allergy/AdvReac Type Severity Reaction Status Date / Time Sulfa (Sulfonamide Allergy Severe Gastrointestinal Unverified 03/15/24 08:52 Antibiotics) Upset metformin AdvReac Severe Gastrointestinal Unverified 03/15/24 08:52 Upset Home Meds Home Medications Medication Instructions Recorded Confirmed escitalopram oxalate 10 mg tablet 10 mg PO QPM 11/15/20 03/15/24 lisinopril 20 mg tablet 20 mg PO QPM 11/15/20 03/15/24 omeprazole 20 mg capsule,delayed 20 mg PO DAILY PRN Heartburn 11/15/20 03/15/24 release atorvastatin 40 mg tablet 40 mg PO PM 10/10/23 03/15/24 empagliflozin 25 mg tablet 25 mg PO PM 10/10/23 03/15/24 (Jardiance) levothyroxine 112 mcg tablet 112 mcg PO QAM 10/10/23 03/15/24 tamsulosin 0.4 mg capsule 0.4 mg PO PM 10/10/23 03/15/24 aspirin 81 mg tablet 81 mg PO DAILY 03/15/24 03/15/24 cholecalciferol (vitamin D3) 25 25 mcg PO DAILY 03/15/24 03/15/24 mcg (1,000 unit) tablet (Vitamin D3) Results & Data (ED) Vital Signs Vital Signs - 24 hr 04/05/24 03:21 04/05/24 03:51 Temperature 36.3 C L Temperature Source Temporal Artery Scan Pulse Rate 78 82 Pulse Rhythm Regular Regular Pulse Strength Normal Respiratory Rate 18 18 Respiratory Effort / Characteristics Non-Labored Spontaneous Respiratory Depth Normal Respiratory Pattern Regular Blood Pressure 97/69 L Blood Pressure Mean 78 Blood Pressure Position Sitting Pulse Oximetry 98 99 Oxygen Delivery Method Room Air Room Air Sepsis Recent Fever Within 48 Hours No Sepsis New/Unexplained Change in Mental Status No Sepsis Action Taken by Nursing No Action Required Laboratory Data 04/05/24 04:18 04/05/24 04:18 Lab Results 04/05/24 04/05/24 Range/Units 04:18 Unknown WBC 6.73 (4.8-10.8) K/ul RBC 4.57 L (4.70-6.10) M/uL Hgb 13.4 L (14.0-18.0) g/dl Hct 40.1 L (42.0-52.0) % MCV 87.7 (80.0-100.0) fL MCH 29.3 (25.0-34.0) pg MCHC 33.4 (32.0-36.0) g/dL RDW Std Deviation 44.5 (36.4-46.3) fL RDW Coeff of Ambar 14.1 (11.5-14.5) % Plt Count 200 (130-400) K/uL MPV 10.3 (9.4-12.4) fL Immature Gran % (Auto) 0.3 % Neut % (Auto) 63.6 % Lymph % (Auto) 25.4 % [place] % (Auto) 7.9 % Eos % (Auto) 2.4 % Baso % (Auto) 0.4 % Neut # (Auto) 4.28 (1.40-6.50) K/uL Lymph # (Auto) 1.71 (1.20-3.40) K/uL [place] # (Auto) 0.53 (0.11-0.59) K/uL Eos # (Auto) 0.16 (0.00-0.50) K/uL Baso # (Auto) 0.03 (0.00-0.20) K/uL Immature Gran # (Auto) 0.02 (0.01-0.20) K/uL Sodium 137 (136-145) mmol/L Potassium 4.4 (3.5-5.1) mmol/L Chloride 106 (98-107) mmol/L Carbon Dioxide 25 (21-32) mmol/L Anion Gap 6 (3-11) BUN 27 H (6-23) mg/dl Creatinine 1.28 (0.6-1.4) mg/dl Est Cr Clr Drug Dosing 58.7 ml/min Est GFR ( Amer) 64.4 ml/min Est GFR (Non-Af Amer) 55.5 ml/min BUN/Creatinine Ratio 21.1 H (10-20) Glucose 133 H (70-99(Fasting)) mg/dl Calcium 9.2 (8.6-10.3) mg/dl Total Bilirubin 1.2 H (0.2-1.0) mg/dl AST 20 (13-39) U/L ALT 21 (7-52) U/L Alkaline Phosphatase 93 (34-104) U/L Troponin I High Sens 6.5 (0-20) pg/ml B-Natriuretic Peptide 80 (0-100) pg/ml Total Protein 7.0 (6.0-8.3) gm/dl Albumin 4.1 (3.4-5.0) gm/dl Globulin 2.9 (2.5-4.0) gm/dl Albumin/Globulin Ratio 1.4 (0.9-2) TSH 1.200 (0.300-4.500) uIu/ml Urine Color Yellow Urine Appearance Clear (Clear) Urine pH 5.0 (4.5-7.5) Ur Specific [place] 1.036 H (1.000-1.030) Urine Protein Negative (Negative) Urine Glucose (UA) 3+ H (Negative) Urine Ketones Negative (Negative) Urine Blood Negative (Negative) Urine Nitrite Negative (Negative) Urine Bilirubin Negative (Negative) Urine Urobilinogen Negative (Negative) Ur Leukocyte Esterase Negative (Negative) SARS-CoV-2 (PCR) NEGATIVE (Negative) Influenza Type A (PCR) Negative (Neg) Influenza Type B (PCR) Negative (Neg) RSV (RT-PCR) Negative (Neg) Discharge Plan Visit Data Chief Complaint: Anxiety Stated Complaint: PANIC AND ANXIETY ATTACK ED Provider: Herve Dhaliwal Discharge Problem: Breathlessness, Anxiety, Pulmonary edema Patient Disposition: Being Evaluated by Hospitalist Forms Stand Alone Forms: My [facility], Suicide Prevention Resources Prescriptions Prescriptions: No Action lisinopril 20 mg tablet 20 mg PO QPM Rx Instructions: HASN'T TAKEN FOR AT LEAST A WEEK. omeprazole 20 mg capsule,delayed release(DR/EC) 20 mg PO DAILY PRN (Reason: Heartburn) escitalopram oxalate 10 mg tablet 10 mg PO QPM Rx Instructions: HASN'T TAKEN FOR AT LEAST A WEEK atorvastatin 40 mg tablet 40 mg PO PM tamsulosin 0.4 mg capsule 0.4 mg PO PM levothyroxine 112 mcg tablet 112 mcg PO QAM Jardiance 25 mg tablet 25 mg PO PM aspirin 81 mg Tablet 81 mg PO DAILY cholecalciferol (vitamin D3) [Vitamin D3] 25 mcg (1,000 unit) Tablet 25 mcg PO DAILY Referrals Referrals: Evaristo Matthews MD [Primary Care Provider] -
[2024-04-05 04:48] LABS: Basophils # (auto) 0.03 K/uL (0.00-0.20); Basophils % (auto) 0.4 %; Eosinophils # (auto) 0.16 K/uL (0.00-0.50); Eosinophils % (auto) 2.4 %; Hematocrit (blood only) 40.1 % (42.0-52.0); Hemoglobin 13.4 g/dl (14.0-18.0); Immature Granulocytes # (auto) 0.02 K/uL (0.01-0.20); Immature Granulocytes % (auto) 0.3 %; Lymphocytes # (auto) 1.71 K/uL (1.20-3.40); Lymphocytes % (auto) 25.4 %; Mean Corpuscular Hemoglobin 29.3 pg (25.0-34.0); Mean Corpuscular Hgb Conc 33.4 g/dL (32.0-36.0); Mean Corpuscular Volume 87.7 fL (80.0-100.0); Mean Platelet Volume 10.3 fL (9.4-12.4); Monocytes # (auto) 0.53 K/uL (0.11-0.59); Monocytes % (auto) 7.9 %; Neutrophils # (auto) 4.28 K/uL (1.40-6.50); Neutrophils % (auto) 63.6 %; Platelet Count 200 K/uL (130-400); RDW Coefficient of Variation 14.1 % (11.5-14.5); RDW Standard Deviation 44.5 fL (36.4-46.3); Red Blood Count 4.57 M/uL (4.70-6.10); White Blood Count 6.73 K/ul (4.8-10.8)
[2024-04-05 05:01] LABS: Albumin Globulin Ratio 1.4 (0.9-2); Albumin Level 4.1 gm/dl (3.4-5.0); BUN Creatinine Ratio 21.1 (10-20); Bilirubin,Total 1.2 mg/dl (0.2-1.0); Calcium 9.2 mg/dl (8.6-10.3); Creatinine Clr Calc Pharmacy 58.7 ml/min; Est GFR (African American) 64.4 ml/min; Est GFR (Non-African American) 55.5 ml/min; Globulin 2.9 gm/dl (2.5-4.0); Potassium 4.4 mmol/L (3.5-5.1)
[2024-04-05 05:08] LABS: Troponin I High Sensitivity 6.5 pg/ml (0-20)
[2024-04-05 05:17] LABS: Influenza A virus by PCR Negative (Neg); Influenza B virus by PCR Negative (Neg); RSV by PCR Negative (Neg); SARS CoV2 RNA(COVID-19) Ceph NEGATIVE (Negative); Thyroid Stimulating Hormone 1.2 uIu/ml (0.300-4.500)
[2024-04-05 05:21] LABS: Appearance Urine Clear (Clear); Bilirubin Urine Negative (Negative); Blood Urine Negative (Negative); Color Urine Yellow; Glucose Urine UA 3+ (Negative); Ketones Urine Negative (Negative); Leukocyte Esterase Urine Negative (Negative); Nitrite Urine Negative (Negative); Protein Urine Negative (Negative); Specific Gravity Urine 1.036 (1.000-1.030); Urobilinogen Urine Negative (Negative)
--- NOTE | 2024-04-05 06:52 | History & Physical Report ---
Date of Service April 05, 2024 Assessment & Plan (1) Breathlessness: Plan: 73-year-old male with past medical history significant for type 2 diabetes, hypothyroidism, hyperlipidemia, hypertension, GERD, urge incontinence, CKD stage III, history of tobacco use, adjustment disorder with anxious mood, anxiety, history of thyroid cancer, presents with ongoing anxiety chest pain and shortness of breath. This is going on for last 2 weeks. On March 14 he was diagnosed with COVID in urgent care. He was in the ER on March 15 2024. Respiratory bio fire in the ER was negative. CTA chest was done in the ER at that time which was negative for PE but showed multifocal airspace opacities including left basilar consolidation suggestive of pneumonia and also possible interstitial pulmonary edema and mildly enlarged bilateral hilar lymph nodes possibly reactive. ER advised to stay in the hospital. But patient want to go home. Hospitalist consulted. As he does not want to get admitted he was discharged on antibiotic Omnicef and azithromycin. He also followed with PCP few times since then. But his anxiety is not getting better. He also having difficulty sleeping. Recently was prescribed trazodone and BuSpar by PCP. Patient states he took them but as they were not helping he stopped taking them. When he lies down to sleep feeling anxious and he was not able to sleep all night. And is also getting short of breath. He still going to the gym. Last time he was in gym was last Saturday. But he does not overdo gym. He slowly walks on the treadmill. Lately is feeling more short of breath than usual on the treadmill. And also very mild chest discomfort. He is getting very mild chest discomfort on and off. Denies any headache. No dizziness. No blurred vision. No runny nose or sore throat. Occasional cough. Appetite is okay. No difficulty swallowing. No nausea. No abdominal pain. Normal bowel and bladder movements. No swelling in the legs. Currently hemodynamics are okay. Breathlessness Anxiety Mild chest pain Insomnia Recently treated for pneumonia with Omnicef and azithromycin Initial EKG and troponin negative CTA chest done:1. No pulmonary embolus. 2. Redemonstration of bibasilar consolidative densities compatible with pneumonia. Follow-up to resolution is recommended. 3. Small bilateral pleural effusions, increased from prior exam Will do empiric IV cefepime and doxycycline Will follow serial enzymes and echo Consult cardiology for further recommendations Monitor on telemetry Diabetes Hold home p.o. medications Sliding scale Will monitor Hypothyroidism On Synthyroid Hyperlipidemia On statin Hypertension On lisinopril Monitor GERD On omeprazole BPH On Flomax DVT prophylaxis SCDs for now Disposition Telemetry Full code History of Present Illness Chief Complaint: Anxiety, chest pain/shortness of breath Primary Care Provider: Evaristo Matthews MD 73-year-old male with past medical history significant for type 2 diabetes, hypothyroidism, hyperlipidemia, hypertension, GERD, urge incontinence, CKD stage III, history of tobacco use, adjustment disorder with anxious mood, anxiety, history of thyroid cancer, presents with ongoing anxiety chest pain and shortness of breath. This is going on for last 2 weeks. On March 14 he was lida gnosed with COVID in urgent care. He was in the ER on March 15 2024. Respiratory bio fire in the ER was negative. CTA chest was done in the ER at that time which was negative for PE but showed multifocal airspace opacities including left basilar consolidation suggestive of pneumonia and also possible interstitial pulmonary edema and mildly enlarged bilateral hilar lymph nodes possibly reactive. ER advised to stay in the hospital. But patient want to go home. Hospitalist consulted. As he does not want to get admitted he was discharged on antibiotic Omnicef and azithromycin. He also followed with PCP few times since then. But his anxiety is not getting better. He also having difficulty sleeping. Recently was prescribed trazodone and BuSpar by PCP. Patient states he took them but as they were not helping he stopped taking them. When he lies down to sleep feeling anxious and he was not able to sleep all night. And is also getting short of breath. He still going to the gym. Last time he was in gym was last Saturday. But he does not overdo gym. He slowly walks on the treadmill. Lately is feeling more short of breath than usual on the treadmill. And also very mild chest discomfort. He is getting very mild chest discomfort on and off. Denies any headache. No dizziness. No blurred vision. No runny nose or sore throat. Occasional cough. Appetite is okay. No difficulty swallowing. No nausea. No abdominal pain. Normal bowel and bladder movements. No swelling in the legs. Currently hemodynamics are okay. Past medical history. As mentioned above. Past surgical history. Colonoscopy. colonoscopy with biopsy. EGD with biopsy. Removal of thyroid gland. Inguinal hernia repair. Shoulder arthroscopy. Sigmoidoscopy. Social history. . Quit smoking 2011. Alcohol beer few times a week. No drug use. Family history. Father had MT, prostate cancer. Mother had pancreatic cancer. Allergies Allergy/AdvReac Type Severity Reaction Status Date / Time Sulfa (Sulfonamide Allergy Severe Gastrointestinal Unverified 03/15/24 08:52 Antibiotics) Upset metformin AdvReac Severe Gastrointestinal Unverified 03/15/24 08:52 Upset Home Medications Medication Instructions Recorded Confirmed Type albuterol sulfate 90 mcg/actuation 2 puff inhalation Q6H PRN 04/05/24 04/05/24 History aerosol inhaler Shortness Of Breath Or Wheezing aspirin 81 mg tablet,delayed 81 mg PO DAILY 04/05/24 04/05/24 History release atorvastatin 40 mg tablet 40 mg PO DAILY 04/05/24 04/05/24 History buspirone 10 mg tablet 10 mg PO TID PRN Anxiety 04/05/24 04/05/24 History empagliflozin 25 mg tablet 25 mg PO DAILY 04/05/24 04/05/24 History (Jardiance) escitalopram oxalate 10 mg tablet 10 mg PO DAILY 04/05/24 04/05/24 History levothyroxine 112 mcg tablet 112 mcg PO DAILY 04/05/24 04/05/24 History lisinopril 20 mg tablet 20 mg PO DAILY 04/05/24 04/05/24 History omeprazole 20 mg capsule,delayed 20 mg PO DAILY 04/05/24 04/05/24 History release tamsulosin 0.4 mg capsule 0.4 mg PO DAILY 04/05/24 04/05/24 History trazodone 50 mg tablet 50 mg PO HS 04/05/24 04/05/24 History Past Med/Surg History Medical History Hypercholesterolemia GERD (gastroesophageal reflux disease) Hypertension Depression Diabetes Social History Smoking Status: Never smoker Tobacco Type: Cigarettes Preferred Language: [place] Feels Safe at Home: Yes Review of Systems Review of Systems: All systems reviewed & are unremarkable except as noted in HPI & below Physical Exam Physical Exam: General- Not in distress Head- atraumatic Eyes- PERRL,. ENT- oropharynx clear Neck- supple, no JVD. Lungs- clear to auscultation no wheezing or crackles. Heart- regular rhythm; no murmur, no gallop. Abdomen- normal bowel sounds, soft, nontender, no distension. Extremities- no pretibial edema, no erythema seen Neuro- alert, oriented PERRL, no facial palsy; no dysarthria; moves extremities. Results & Data Results & Data Vital Signs (Past 12 Hours) Vital Signs Temp Pulse Resp BP Pulse Ox O2 Del Method 04/05/24 06:13 83 04/05/24 03:51 82 18 99 Room Air 04/05/24 03:21 36.3 C L 78 18 97/69 L 98 Room Air Diagnostic Findings Laboratory Results WBC 6.73 K/ul (4.8-10.8) 04/05/24 04:18 RBC 4.57 M/uL (4.70-6.10) L 04/05/24 04:18 Hgb 13.4 g/dl (14.0-18.0) L 04/05/24 04:18 Hct 40.1 % (42.0-52.0) L 04/05/24 04:18 MCV 87.7 fL (80.0-100.0) 04/05/24 04:18 MCH 29.3 pg (25.0-34.0) 04/05/24 04:18 MCHC 33.4 g/dL (32.0-36.0) 04/05/24 04:18 RDW Std Deviation 44.5 fL (36.4-46.3) 04/05/24 04:18 RDW Coeff of Ambar 14.1 % (11.5-14.5) 04/05/24 04:18 Plt Count 200 K/uL (130-400) 04/05/24 04:18 MPV 10.3 fL (9.4-12.4) 04/05/24 04:18 Immature Gran % (Auto) 0.3 % 04/05/24 04:18 Neut % (Auto) 63.6 % 04/05/24 04:18 Lymph % (Auto) 25.4 % 04/05/24 04:18 [place] % (Auto) 7.9 % 04/05/24 04:18 Eos % (Auto) 2.4 % 04/05/24 04:18 Baso % (Auto) 0.4 % 04/05/24 04:18 Neut # (Auto) 4.28 K/uL (1.40-6.50) 04/05/24 04:18 Lymph # (Auto) 1.71 K/uL (1.20-3.40) 04/05/24 04:18 [place] # (Auto) 0.53 K/uL (0.11-0.59) 04/05/24 04:18 Eos # (Auto) 0.16 K/uL (0.00-0.50) 04/05/24 04:18 Baso # (Auto) 0.03 K/uL (0.00-0.20) 04/05/24 04:18 Immature Gran # (Auto) 0.02 K/uL (0.01-0.20) 04/05/24 04:18 Sodium 137 mmol/L (136-145) 04/05/24 04:18 Potassium 4.4 mmol/L (3.5-5.1) 04/05/24 04:18 Chloride 106 mmol/L (98-107) 04/05/24 04:18 Carbon Dioxide 25 mmol/L (21-32) 04/05/24 04:18 Anion Gap 6 (3-11) 04/05/24 04:18 BUN 27 mg/dl (6-23) H 04/05/24 04:18 Creatinine 1.28 mg/dl (0.6-1.4) 04/05/24 04:18 Est Cr Clr Drug Dosing 58.7 ml/min 04/05/24 04:18 Est GFR ( Amer) 64.4 ml/min 04/05/24 04:18 Est GFR (Non-Af Amer) 55.5 ml/min 04/05/24 04:18 BUN/Creatinine Ratio 21.1 (10-20) H 04/05/24 04:18 Glucose 133 mg/dl (70-99(Fasting)) H 04/05/24 04:18 Calcium 9.2 mg/dl (8.6-10.3) 04/05/24 04:18 Total Bilirubin 1.2 mg/dl (0.2-1.0) H 04/05/24 04:18 AST 20 U/L (13-39) 04/05/24 04:18 ALT 21 U/L (7-52) 04/05/24 04:18 Alkaline Phosphatase 93 U/L (34-104) 04/05/24 04:18 Troponin I High Sens 6.5 pg/ml (0-20) 04/05/24 04:18 B-Natriuretic Peptide 80 pg/ml (0-100) 04/05/24 04:18 Total Protein 7.0 gm/dl (6.0-8.3) 04/05/24 04:18 Albumin 4.1 gm/dl (3.4-5.0) 04/05/24 04:18 Globulin 2.9 gm/dl (2.5-4.0) 04/05/24 04:18 Albumin/Globulin Ratio 1.4 (0.9-2) 04/05/24 04:18 TSH 1.200 uIu/ml (0.300-4.500) 04/05/24 04:18 Urine Color Yellow 04/05/24 Unknown Urine Appearance Clear (Clear) 04/05/24 Unknown Urine pH 5.0 (4.5-7.5) 04/05/24 Unknown Ur Specific [place] 1.036 (1.000-1.030) H 04/05/24 Unknown Urine Protein Negative (Negative) 04/05/24 Unknown Urine Glucose (UA) 3+ (Negative) H 04/05/24 Unknown Urine Ketones Negative (Negative) 04/05/24 Unknown Urine Blood Negative (Negative) 04/05/24 Unknown Urine Nitrite Negative (Negative) 04/05/24 Unknown Urine Bilirubin Negative (Negative) 04/05/24 Unknown Urine Urobilinogen Negative (Negative) 04/05/24 Unknown Ur Leukocyte Esterase Negative (Negative) 04/05/24 Unknown SARS-CoV-2 (PCR) NEGATIVE (Negative) 04/05/24 04:18 Influenza Type A (PCR) Negative (Neg) 04/05/24 04:18 Influenza Type B (PCR) Negative (Neg) 04/05/24 04:18 RSV (RT-PCR) Negative (Neg) 04/05/24 04:18 Impressions Chest CTA 04/05/24 06:18 CT angio chest PE protocol CLINICAL HISTORY: PE TECHNIQUE: Multidetector row helical CT of the chest was performed with angiographic protocol. Coronal and sagittal reformations were obtained. Coronal and sagittal MIPS were obtained from the axial data set and were submitted for review. Automated dose lowering techniques and/or adjustment according to patient size were utilized for this exam. CT DOSE: 877.46 mGy.cm Comparison: Comparison is made to CTA chest 03/15/2024 FINDINGS: Lungs and pleura: Small bilateral pleural effusions are seen. Consolidations are again seen in the bilateral lower lungs. Heart and pericardium: Cardiomegaly is seen with biatrial enlargement. Vessels: Evaluation for pulmonary embolism is limited due to patient motion. No evidence of central, lobar, or segmental embolus. Mediastinum and eugenio: Subcentimeter lymph nodes are seen. Chest wall and lower neck: Patient is status post thyroidectomy. Abdomen: Unremarkable. Bones: Degenerative changes in the thoracic spine. IMPRESSION: 1. No pulmonary embolus. 2. Redemonstration of bibasilar consolidative densities compatible with pneumonia. Follow-up to resolution is recommended. 3. Small bilateral pleural effusions, increased from prior exam. ACT 112: Negative or not required by law. Electronically signed by: Teto Garrison M.D. 04/05/2024 7:20 AM ECG Additional Comments: ECG. NSR at rate of 77. NO acute ST changes seen. No significant change. Code Status & VTE Plan VTE Prophylaxis Plan VTE Prophylaxis will be ordered: Yes
--- NOTE | 2024-04-05 07:19 | Electrocardiogram Report ---
Test Reason : Blood Pressure : / mmHG Vent. Rate : 077 BPM Atrial Rate : 077 BPM P-R Int : 144 ms QRS Dur : 096 ms QT Int : 364 ms P-R-T Axes : 041 024 020 degrees QTc Int : 411 ms Normal sinus rhythm Normal ECG When compared with ECG of 15-MAR-2024 07:13, No significant change was found Confirmed by Yossi Arango ([id number]) on 04/05/2024 7:18:46 AM Referred By: REFERRED SELF Confirmed By:Aki Arango
--- NOTE | 2024-04-05 07:23 | CT Scan Report ---
CT angio chest PE protocol CLINICAL HISTORY: PE TECHNIQUE: Multidetector row helical CT of the chest was performed with angiographic protocol. [place] l and sagittal reformations were obtained. Coronal and sagittal MIPS were obtained from the axial mariaelena a set and were submitted for review. Automated dose lowering techniques and/or adjustment according to patient size were utilized for this exam. CT DOSE: 877.46 mGy.cm Comparison: Comparison is made to CTA chest 03/15/2024 FINDINGS: Lungs and pleura: Small bilateral pleural effusions are seen. Consolidations are again seen in the bi lateral lower lungs. Heart and pericardium: Cardiomegaly is seen with biatrial enlargement. Vessels: Evaluation for pulmonary embolism is limited due to patient motion. No evidence of central, lobar, or segmental embolus. Mediastinum and eugenio: Subcentimeter lymph nodes are seen. Chest wall and lower neck: Patient is status post thyroidectomy. Abdomen: Unremarkable. Bones: Degenerative changes in the thoracic spine. IMPRESSION: 1. No pulmonary embolus. 2. Redemonstration of bibasilar consolidative densities compatible with pneumonia. Follow-up to reso lution is recommended. 3. Small bilateral pleural effusions, increased from prior exam. ACT 112: Negative or not required by law. Electronically signed by: Teto Garrison M.D. 04/05/2024 7:20 AM
[2024-04-05] MEDS: ALPRAZolam 0.25 MG TABLET PO ONE (07:55)
[2024-04-05] MEDS: FUROSEMIDE 40 MG/4 ML VIAL IV SCH (07:55)
--- NOTE | 2024-04-05 08:08 | XRay Report ---
XR chest 1V portable CLINICAL HISTORY: Dyspnea TECHNIQUE: Single frontal radiograph of the chest was obtained. Comparison: Comparison is made to chest radiograph 03/15/2024 FINDINGS: No lines and tubes are seen. Calcified aortic knob is seen. There is prominence and cephalization of the vasculature with Tiffany B lines seen. Bibasilar airspace opacities are seen. No evidence of pleur al effusion or pneumothorax. IMPRESSION: 1. Cardiomegaly and moderate pulmonary edema. 2. Bibasilar airspace opacities may represent atelectasis, pneumonia, and/or aspiration. ACT 112: Negative or not required by law. Electronically signed by: Teto Garrison M.D. 04/05/2024 8:07 AM
[2024-04-05] MEDS ORDERED: ACETAMINOPHEN 325 MG TAB PO PRN (08:23)
[2024-04-05] MEDS ORDERED: DEXTROSE 50% 50 ML SYRINGE IV PRN (08:23)
[2024-04-05] MEDS ORDERED: GLUCAGON FOR INJ 1 MG VIAL SQ PRN (08:23)
[2024-04-05] MEDS ORDERED: GLUCOSE 10 TAB/TUBE PO PRN (08:23)
[2024-04-05] MEDS ORDERED: POLYETHYLENE (MIRALAX) 17 GM PACK PO PRN (08:23)
[2024-04-05] MEDS ORDERED: GLUCOSE 40% GEL 15 GM TUBE PO PRN (08:23)
[2024-04-05] MEDS ORDERED: NITROGLYCERIN SL 0.4 MG/TAB TAB SL PRN (08:23)
[2024-04-05] MEDS ORDERED: CARBOHYDRATES FOR HYPOGLYCEMIA PO PRN (08:23)
[2024-04-05] MEDS ORDERED: ALBUTEROL HFA 8 GM INHALER INH PRN (08:23)
[2024-04-05] MEDS: PIPERACILLIN/TAZOBACTAM 4.5 GM in DEXTROSE 5% MINI-B 100 ML IV SCH (10:00)
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
[2024-04-05] MEDS: INSULIN ASPART PER UNIT CHARGE SC SCH ×3 (10:25→17:36)
[2024-04-05] MEDS: TAMSULOSIN HCL 0.4 MG CAP PO SCH (10:25)
[2024-04-05] MEDS: PANTOprazole 40 MG TAB PO SCH (10:25)
[2024-04-05] MEDS: ATORVASTATIN 40 MG TAB PO SCH (10:25)
[2024-04-05] MEDS: ESCITALOPRAM OXALATE 10 MG TAB PO SCH (10:25)
[2024-04-05] MEDS: ASPIRIN 81 MG ECTAB PO SCH (10:25)
[2024-04-05] MEDS: lisinopril 20 MG TAB PO SCH (10:25)
[2024-04-05] MEDS: LEVOTHYROXINE SODIUM 112 MCG TABLET PO SCH (10:25)
[2024-04-05] MEDS ORDERED: ALBUT/IPRATROP 3MG/0.5MG NEB 3 ML VIAL NEB SCH (11:00)
--- NOTE | 2024-04-05 11:12 | Hospitalist Progress Note ---
Date of Service April 05, 2024 Assessment & Plan (1) Breathlessness: Plan: 73-year-old male with past medical history significant for type 2 diabetes, hypothyroidism, hyperlipidemia, hypertension, GERD, urge incontinence, CKD stage III, history of tobacco use, adjustment disorder with anxious mood, anxiety, history of thyroid cancer, presents with ongoing anxiety And shortness of breath for 2 weeks. Recently treated for pneumonia. Pulmonary edema Mitral valve posterior leaflet prolapse Mitral insufficiency Patient presents with 3 weeks of shortness of breath and orthopnea. Treated for pneumonia and anxiety recently but symptoms continues to persist EKG personally reviewed; normal sinus rhythm Chest x-ray personally reviewed; consistent with pulmonary edema CTA chest personally reviewed bilateral pleural effusion along with pulmonary edema. Echocardiogram shows EF of 65 to 70% with severe prolapse of posterior mitral valve leaflet. Discussed with cardiology; patient's symptoms of orthopnea and shortness of breath on exertion likely due to pulmonary edema, mitral valve insufficiency. Plan for possible BEAR tomorrow AM. for better evaluation N.p.o. from midnight Started on Lasix 40 mg twice daily Strict input and output monitoring Daily weights Will continue doxycycline for 5 days. Continue cefepime till blood culture results are available Type II Diabetes Mellitus Hold home p.o. medications Sliding scale Will monitor Hypothyroidism On Synthyroid, continue Hyperlipidemia On statin, continue Hypertension On lisinopril Monitor GERD On omeprazole BPH On Flomax DVT prophylaxis SCDs for now Disposition Telemetry Full code Please note the above document was generated using voice recognition software. It may contain grammatical, syntax or spelling errors. Any formal questions or concerns about the content, text or information contained within the body of this dictation should be directly addressed to the provider for clarification Admission and Anticipated Discharge Date Admission Date: April 05, 2024 Subjective Patient seen and examined at bedside. He is comfortably sitting up on the bed; not in distress. He reports orthopnea and shortness of breath on minimal exertion Review of Systems Review of Systems: All systems reviewed & are unremarkable except as noted in Subjective Physical Exam Physical Exam: Constitutional: WD/WN, vitals as above, NAD, sitting up in bed, pleasant, conversing easily Respiratory: Bibasilar crackles present Cardiovascular: Regular, 3/6 holosystolic murmur Chest: normal inspection of chest Abdomen: normal bowel sounds, soft, nontender, no hepatosplenomegaly Musculoskeletal: no cyanosis or clubbing, extremities motor strength 5/5. Trace edema Skin: no rashes, warm and dry normal turgor Neurologic: PERRL, EOMI, accommodation nl, no face palsy, no dysarthria CN's II- XI intact bilaterally and moves all extremities Psychiatric: A+Ox3, euthymic affect Results & Data Results & Data Vital Signs (Past 12 Hours) Vital Signs Temp Pulse Pulse Resp BP BP Pulse Ox 04/05/24 09:00 04/05/24 09:00 37.1 C 83 16 106/69 97 04/05/24 07:54 80 19 116/77 97 04/05/24 06:13 83 04/05/24 06:11 77 18 110/69 97 04/05/24 03:51 82 18 99 04/05/24 03:21 36.3 C L 78 18 97/69 L 98 O2 Del Method 04/05/24 09:00 Room Air 04/05/24 09:00 Room Air 04/05/24 07:54 Room Air 04/05/24 06:13 04/05/24 06:11 Room Air 04/05/24 03:51 Room Air 04/05/24 03:21 Room Air
[2024-04-05] MEDS: DOXYCYCLINE HYCLATE 100 MG in DEXTROSE 5% MINI-B 100 ML IV SCH (12:36)
[2024-04-05] MEDS: INSULIN ASPART PER UNIT CHARGE ONE (12:36)
[2024-04-05] MEDS: CEFEPIME 2,000 MG in SYRINGE 0 ML IV SCH (12:36)
[2024-04-05] MEDS ORDERED: SODIUM CHLOR 7% 4 ML NEB NEB SCH (19:00)
[2024-04-05] MEDS: LORazepam 0.5 MG TAB PO STA (22:12)
[2024-04-06 05:54] LABS: Basophils # (auto) 0.02 K/uL (0.00-0.20); Basophils % (auto) 0.3 %; Eosinophils # (auto) 0.18 K/uL (0.00-0.50); Eosinophils % (auto) 2.4 %; Hematocrit (blood only) 41.9 % (42.0-52.0); Hemoglobin 14.4 g/dl (14.0-18.0); Immature Granulocytes # (auto) 0.03 K/uL (0.01-0.20); Immature Granulocytes % (auto) 0.4 %; Lymphocytes # (auto) 1.53 K/uL (1.20-3.40); Lymphocytes % (auto) 20.8 %; Mean Corpuscular Hemoglobin 29.7 pg (25.0-34.0); Mean Corpuscular Hgb Conc 34.4 g/dL (32.0-36.0); Mean Corpuscular Volume 86.4 fL (80.0-100.0); Monocytes % (auto) 8.2 %; Neutrophils % (auto) 67.9 %; Platelet Count 201 K/uL (130-400); RDW Standard Deviation 43.3 fL (36.4-46.3); Red Blood Count 4.85 M/uL (4.70-6.10); White Blood Count 7.36 K/ul (4.8-10.8)
[2024-04-06 06:09] LABS: BUN Creatinine Ratio 21.3 (10-20); Calcium 9.2 mg/dl (8.6-10.3); Creatinine Clr Calc Pharmacy 49.7 ml/min; Est GFR (African American) 53.1 ml/min; Est GFR (Non-African American) 45.9 ml/min; Magnesium 2.1 mg/dl (1.7-2.4); Potassium 3.9 mmol/L (3.5-5.1)
--- NOTE | 2024-04-06 07:28 | Anesthesiology Consultation ---
Date of Service April 06, 2024 Assessment & Plan ASA ASA3 Proposed Anesthesia Anesthesia Type: MAC Risk / Benefits Reviewed With: PT / POA / Parent / Guardian, Accepts Plan and Informed Consent Obtained History Surgery Operation Date: 04/06/24 07:15 Proposed Procedures p Transesophageal Echo w/Anesthesia - Gagandeep Damon DO Operation Date: 04/06/24 07:45 Proposed Procedures p Transesophageal Echo w/Anesthesia - Gagandeep Damon DO Height/Weight Height: 5 ft 9 in Weight: 89.6 kg Allergies Allergy/AdvReac Type Severity Reaction Status Date / Time Sulfa (Sulfonamide Allergy Severe Gastrointestinal Unverified 03/15/24 08:52 Antibiotics) Upset metformin AdvReac Severe Gastrointestinal Unverified 03/15/24 08:52 Upset Medications Home Medications Medication Instructions Recorded Confirmed Last Taken albuterol sulfate 90 mcg/actuation 2 puff inhalation Q6H PRN 04/05/24 04/05/24 Unknown aerosol inhaler Shortness Of Breath Or Wheezing aspirin 81 mg tablet,delayed 81 mg PO DAILY 04/05/24 04/05/24 Unknown release atorvastatin 40 mg tablet 40 mg PO DAILY 04/05/24 04/05/24 Unknown buspirone 10 mg tablet 10 mg PO TID PRN Anxiety 04/05/24 04/05/24 Unknown empagliflozin 25 mg tablet 25 mg PO DAILY 04/05/24 04/05/24 Unknown (Jardiance) escitalopram oxalate 10 mg tablet 10 mg PO DAILY 04/05/24 04/05/24 Unknown levothyroxine 112 mcg tablet 112 mcg PO DAILY 04/05/24 04/05/24 Unknown lisinopril 20 mg tablet 20 mg PO DAILY 04/05/24 04/05/24 Unknown omeprazole 20 mg capsule,delayed 20 mg PO DAILY 04/05/24 04/05/24 Unknown release tamsulosin 0.4 mg capsule 0.4 mg PO DAILY 04/05/24 04/05/24 Unknown trazodone 50 mg tablet 50 mg PO HS 04/05/24 04/05/24 Unknown Active Medications Generic Name Dose Route Start Last Admin Trade Name Freq PRN Reason Stop Dose Admin Aspirin 81 mg 04/05/24 09:00 04/05/24 10:25 Aspirin 81 Mg Ectab PO 05/05/24 08:59 81 mg DAILY ANGELY Administration Atorvastatin Calcium 40 mg 04/05/24 09:00 04/05/24 10:25 Atorvastatin 40 Mg Tab PO 05/05/24 08:59 40 mg DAILY ANGELY Administration Escitalopram Oxalate 10 mg 04/05/24 09:00 04/05/24 10:25 Escitalopram Oxalate 10 Mg Tab PO 05/05/24 08:59 10 mg DAILY ANGELY Administration Furosemide 40 mg 04/05/24 07:35 04/05/24 16:14 Furosemide 40 Mg/4 Ml Vial IV 05/05/24 07:34 40 mg [id number] ANGELY Administration Doxycycline Hyclate 100 mg/ 100 mls @ 50 mls/hr 04/05/24 13:00 04/06/24 03:10 Dextrose IV 04/12/24 12:59 Infused Q12H ANGELY Infusion Cefepime HCl 2,000 mg/ Syringe 20 mls @ 5 mls/min 04/05/24 12:00 04/06/24 00:10 IV 04/07/24 11:59 5 mls/min Q12H ANGELY Administration Protocol Insulin Aspart 0 units 04/05/24 16:30 04/05/24 21:44 Insulin Aspart Per Unit Charge SC 05/05/24 16:29 Not Given ACHS ANGELY Levothyroxine Sodium 112 mcg 04/05/24 09:00 04/06/24 05:39 Levothyroxine Sodium 112 Mcg Tablet PO 05/05/24 08:59 112 mcg DAILYBB ANGELY Administration Lisinopril 20 mg 04/05/24 09:00 04/05/24 10:25 Lisinopril 20 Mg Tab PO 05/05/24 08:59 20 mg DAILY ANGELY Administration Pantoprazole Sodium 40 mg 04/05/24 09:00 04/05/24 10:25 Pantoprazole 40 Mg Tab PO 05/05/24 08:59 40 mg DAILY ANGELY Administration Tamsulosin HCl 0.4 mg 04/05/24 09:00 04/05/24 10:25 Tamsulosin Hcl 0.4 Mg Cap PO 05/05/24 08:59 0.4 mg DAILY ANGELY Administration NPO Date Last Intake of Fluids: 04/05/24 Date Last Intake of Solids: 04/05/24 Past Medical History Medical History Hypercholesterolemia GERD (gastroesophageal reflux disease) Hypertension Depression Diabetes Exercise / Class Metabolic Activity II 4-5 Yardwork/Stairs/Walk up hill Past Anesthesia History No Hx of Anesthesia Complications and No Family Hx of Anesthesia Complications History of PONV No Hx of PONV and No Hx of Motion Sickness Social History Smoking Status: Former smoker Hx Alcohol Use: Yes alcohol intake frequency: a few times a month Hx Substance Use: No Review of Systems denies fever/cough/ colds/ chest pain/ SOB/ SHANNON denies SHANNON Physical Exam Vital Signs Last Vital Signs Temp 36.6 C 04/06/24 05:53 Pulse 82 04/06/24 05:53 Resp 14 04/06/24 05:53 BP 105/69 04/06/24 02:57 Pulse Ox 94 04/06/24 05:53 O2 Del Method Room Air 04/06/24 05:53 ENMT Mouth: no TMJ abnormality and no dentition abnormality Thyromental Distance: > or= 3.5 Finger Breadths Mallampati Class: II Neck neck extension not limited Respiratory normal respiratory effort; no respiratory distress Auscultation: lungs clear to auscultation bilaterally Cardiovascular Rate/Rhythm: regular rate and regular rhythm Heart Sounds: + murmur Neurologic moves all extremities Psychiatric Orientation: alert and oriented x 3 Testing Laboratory Results 04/06/24 05:34 04/06/24 05:34 Urine Color Yellow 04/05/24 Unknown Urine Appearance Clear (Clear) 04/05/24 Unknown Urine pH 5.0 (4.5-7.5) 04/05/24 Unknown Ur Specific [place] 1.036 (1.000-1.030) H 04/05/24 Unknown Urine Protein Negative (Negative) 04/05/24 Unknown Urine Glucose (UA) 3+ (Negative) H 04/05/24 Unknown Urine Ketones Negative (Negative) 04/05/24 Unknown Urine Nitrite Negative (Negative) 04/05/24 Unknown Ur Leukocyte Esterase Negative (Negative) 04/05/24 Unknown 04/05/24 21:29 POC Glucose 120 H
--- NOTE | 2024-04-06 07:35 | History & Physical Bridge Note ---
Date of Service April 06, 2024 History & Physical Bridge Note I have examined the patient, reviewed the History & Physical and in the interval since the performance of the History & Physical I have noted the following changes of clinical significance: no changes noted. 2/6 systolic murmur noted on examination. Informed consent for BEAR obtained. Patient elects to proceed.
[2024-04-06] MEDS: BENZOCAINE/TETRACAIN/BUTAM 50 APPLN/5 GM CAN EXT ONE (08:05)
[2024-04-06 08:12] LABS: Estimated Average Glucose 160 mg/dl; Hemoglobin A1C 7.2 % (4.5-5.6)
--- NOTE | 2024-04-06 08:18 | Post Operative Brief Note ---
Cardiology Brief Post Op Date of Surgery April 06, 2024 Pre & Post Diagnosis Operation Date: 04/06/24 07:45 Procedure Preprocedure diagnosis: Congestive heart failure, mitral regurgitation Post procedure diagnosis: Flail P2 scallop of the posterior mitral valve leaflet with resultant severe mitral regurgitation Transesophageal echocardiogram procedure: After informed consent was obtained and timeout was performed the patient was sedated with the assistance of the anesthesia service receiving a total of 225 mg of IV propofol, 40 mg IV lidocaine, and 500 mcg of phenylephrine for blood pressure support. There is a ruptured chordae prolapsing into the left atrium. The P2 scallop of the posterior mitral valve leaflet is flail with an anteriorly directed, wall impinging mitral regurgitation jet. Severe mitral regurgitation is present. The LVEF =65-70%. Claim Taker Gagandeep Damon DO [employer] Still Operator Ellie Rosado [facility] Estimated Blood Loss 0 Findings Consistent with Post-Op Diagnosis Anesthesia Type MAC Complications none
[2024-04-06] MEDS ORDERED: ePHEDrine sulfate 50 MG/5 ML SYR ONE (08:21)
[2024-04-06] MEDS ORDERED: PHENYLEPHRINE 100MCG/ML 10ML SYR IV ONE (08:21)
[2024-04-06] MEDS ORDERED: LIDOCAINE 2% 2 ML VIAL/AMP(20MG/ML) INFIL ONE (08:21)
--- NOTE | 2024-04-06 08:23 | Anesthesiology Progress Note ---
Date of Service April 06, 2024 Anesthesia Post Procedure Vital Signs Vital Signs: Temp Pulse Pulse Resp BP Pulse Ox O2 Del Method 04/06/24 08:15 100 H 16 99/77 L 92 Room Air 04/06/24 05:53 36.6 C 82 14 94 Room Air 04/06/24 02:57 36.7 C 91 H 16 105/69 95 Room Air 04/06/24 00:38 36.7 C 73 18 92/62 L 96 Room Air 04/05/24 22:00 79 04/05/24 21:00 Room Air 04/05/24 19:36 36.7 C 84 16 98/63 L 97 Room Air 04/05/24 17:00 78 04/05/24 16:00 36.7 C 77 16 101/62 96 Room Air 04/05/24 13:00 77 04/05/24 11:47 37.3 C 84 18 99/69 L 94 Room Air 04/05/24 09:00 Room Air 04/05/24 09:00 37.1 C 83 16 106/69 97 Room Air Transfer of Care Handoff Completed per policy Notes Mental Status: alert / awake / arousable and participated in evaluation Patient Amnestic to Procedure: Yes Nausea / Vomiting: adequately controlled Pain: adequately controlled Airway Patency, RR, SpO2: stable & adequate BP & HR: stable & adequate Hydration State: stable & adequate Anesthetic Complications: no major complications apparent and Pt Satisfied with anesthetic care
--- NOTE | 2024-04-06 08:36 | Electrocardiogram Report ---
Test Reason : Blood Pressure : / mmHG Vent. Rate : 084 BPM Atrial Rate : 084 BPM P-R Int : 154 ms QRS Dur : 106 ms QT Int : 384 ms P-R-T Axes : 041 008 013 degrees QTc Int : 453 ms Sinus rhythm with occasional Premature ventricular complexes Otherwise normal ECG When compared with ECG of 05-APR-2024 04:12, Premature ventricular complexes are now Present Confirmed by Yossi Arango ([id number]) on 04/06/2024 8:35:55 AM Referred By: Johnathan Tillman Confirmed By:Aki Arango
[2024-04-06] MEDS: PROPOFOL IV EMULSION 10 MG/ML 20 ML VIAL IV ONE ×2 (08:59)
[2024-04-06] MEDS: FUROSEMIDE INJ 20 MG/2 ML VIAL IV SCH (09:05)
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
--- NOTE | 2024-04-06 10:28 | Communication Note ---
Date of Service: April 06, 2024 Updated pt's daughter and son by phone. I discussed his case with Dr Blade Jordan of cardiology at [facility] who accepts patient in transfer for expedited work up for mitral valve surgery. Pt to be transferred by [facility] , pending bed availability.
[2024-04-06] MEDS: ALPRAZolam 0.25 MG TABLET PO STA (10:37)
--- NOTE | 2024-04-06 11:29 | Hospitalist Progress Note ---
Date of Service April 06, 2024 Assessment & Plan (1) Breathlessness: Plan: Pulmonary edema Mitral valve posterior leaflet prolapse Mitral insufficiency Patient is a 73-year-old male with past medical history significant for type 2 diabetes, hypothyroidism, hyperlipidemia, hypertension, GERD, urge incontinence, CKD stage III, history of tobacco use, adjustment disorder with anxious mood, anxiety, history of thyroid cancer, presents with ongoing anxiety and shortness of breath for 2 weeks. Treated for pneumonia and anxiety in last 3 weeks but symptoms of sob/anxiety continues to persist;So he came to the ED EKG on admission normal sinus rhythm; no ST or T wave changes Chest x-ray on admission consistent with pulmonary edema CTA chest on admission showed bilateral pleural effusion along with pulmonary edema. Patient was admitted to the hospital and underwent diuresis with IV Lasix 40 mg twice daily with improvement in symptoms of shortness of breath. He was initially started on cefepime and doxycycline which were discontinued as his symptoms were thought secondarily due to CHF secondary to mitral regurgitation. Transthoracic echocardiogram shows EF of 65 to 70% with severe prolapse of posterior mitral valve leaflet. 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 He had severe mitral regurgitation. EF was 65 to 70% Cardiology recommended expedited workup for mitral valve surgery which patient, family agreed. Cardiology arranged for transfer to [facility], accepting Dr. Yossi Jordan. Type II Diabetes Mellitus Hold home p.o. medications Sliding scale Will monitor Hypothyroidism On Synthyroid, continue Hyperlipidemia On statin, continue Hypertension On lisinopril, on hold as Creatinine uptrended to 1.5 today. Monitor GERD On omeprazole, continue BPH On Flomax, continue DVT prophylaxis SCDs for now Disposition Telemetry Full code Time spent evaluating patient, direct bedside care, chart review, placing orders, interpretation of diagnostic studies, discussion with consultants, patient, and family members, as well as other required patient management activities is 50 minutes Please note the above document was generated using voice recognition software. It may contain grammatical, syntax or spelling errors. Any formal questions or concerns about the content, text or information contained within the body of this dictation should be directly addressed to the provider for clarification Admission and Anticipated Discharge Date Admission Date: April 05, 2024 Subjective Patient reports improvement in shortness of breath. Vital signs stable; not in distress. Underwent BEAR today Review of Systems Review of Systems: All systems reviewed & are unremarkable except as noted in Subjective Physical Exam Physical Exam: Constitutional: WD/WN, vitals as above, NAD, sitting up in bed, pleasant, conversing easily Respiratory: Occasional crackles heard bilaterally at bases Cardiovascular: Regular, 3/6 holosystolic murmur Chest: normal inspection of chest Abdomen: normal bowel sounds, soft, nontender, no hepatosplenomegaly Musculoskeletal: no cyanosis or clubbing, extremities motor strength 5/5. Trace edema Skin: no rashes, warm and dry normal turgor Neurologic: PERRL, EOMI, accommodation nl, no face palsy, no dysarthria CN's II- XI intact bilaterally and moves all extremities Psychiatric: A+Ox3, euthymic affect Results & Data Results & Data Vital Signs (Past 12 Hours) Vital Signs Temp Pulse Pulse Resp BP Pulse Ox O2 Del Method 04/06/24 10:00 80 04/06/24 09:13 36.6 C 92 H 18 95/66 L 95 Room Air 04/06/24 08:51 36.4 C L 85 18 100/67 93 Room Air 04/06/24 08:30 96 H 16 107/65 95 Room Air 04/06/24 08:15 100 H 16 99/77 L 92 Room Air 04/06/24 05:53 36.6 C 82 14 94 Room Air 04/06/24 02:57 36.7 C 91 H 16 105/69 95 Room Air 04/06/24 00:38 36.7 C 73 18 92/62 L 96 Room Air
--- NOTE | 2024-04-06 11:30 | Discharge Summary ---
Date of Service April 06, 2024 Admission HPI Per Admitting Provider 73-year-old male with past medical history significant for type 2 diabetes, hypothyroidism, hyperlipidemia, hypertension, GERD, urge incontinence, CKD stage III, history of tobacco use, adjustment disorder with anxious mood, anxiety, history of thyroid cancer, presents with ongoing anxiety chest pain and shortness of breath. This is going on for last 2 weeks. On March 14 he was diagnosed with COVID in urgent care. He was in the ER on March 15 2024. Respiratory bio fire in the ER was negative. CTA chest was done in the ER at that time which was negative for PE but showed multifocal airspace opacities including left basilar consolidation suggestive of pneumonia and also possible interstitial pulmonary edema and mildly enlarged bilateral hilar lymph nodes possibly reactive. ER advised to stay in the hospital. But patient want to go home. Hospitalist consulted. As he does not want to get admitted he was discharged on antibiotic Omnicef and azithromycin. He also followed with PCP few times since then. But his anxiety is not getting better. He also having difficulty sleeping. Recently was prescribed trazodone and BuSpar by PCP. Patient states he took them but as they were not helping he stopped taking them. When he lies down to sleep feeling anxious and he was not able to sleep all night. And is also getting short of breath. He still going to the gym. Last time he was in gym was last Saturday. But he does not overdo gym. He slowly walks on the treadmill. Lately is feeling more short of breath than usual on the treadmill. And also very mild chest discomfort. He is getting very mild chest discomfort on and off. Denies any headache. No dizziness. No blurred vision. No runny nose or sore throat. Occasional cough. Appetite is okay. No difficulty swallowing. No nausea. No abdominal pain. Normal bowel and bladder movements. No swelling in the legs. Currently hemodynamics are okay. Past medical history. As mentioned above. Past surgical history. Colonoscopy. colonoscopy with biopsy. EGD with biopsy. Removal of thyroid gland. Inguinal hernia repair. Shoulder arthroscopy. Sigmoidoscopy. Social history. . Quit smoking 2011. Alcohol beer few times a week. No drug use. Family history. Father had SC, prostate cancer. Mother had pancreatic cancer. Admission Exam Per Admitting Provider General- Not in distress Head- atraumatic Eyes- PERRL,. ENT- oropharynx clear Neck- supple, no JVD. Lungs- b/l basal crackles Heart- regular rhythm; no murmur, no gallop. Abdomen- normal bowel sounds, soft, nontender, no distension. Extremities- no pretibial edema, no erythema seen Neuro- alert, oriented PERRL, no facial palsy; no dysarthria; moves extremities. Principal Diagnosis Pulmonary edema Mitral valve posterior leaflet prolapse Mitral insufficiency Discharge Exam Constitutional: WD/WN, vitals as above, NAD, sitting up in bed, pleasant, conversing easily Respiratory: Occasional crackles heard bilaterally at bases Cardiovascular: Regular, 3/6 holosystolic murmur Chest: normal inspection of chest Abdomen: normal bowel sounds, soft, nontender, no hepatosplenomegaly Musculoskeletal: no cyanosis or clubbing, extremities motor strength 5/5. Trace edema Skin: no rashes, warm and dry normal turgor Neurologic: PERRL, EOMI, accommodation nl, no face palsy, no dysarthria CN's II- XI intact bilaterally and moves all extremities Psychiatric: A+Ox3, euthymic affect Discharge Data Allergies Allergy/AdvReac Type Severity Reaction Status Date / Time Sulfa (Sulfonamide Allergy Severe Gastrointestinal Unverified 03/15/24 08:52 Antibiotics) Upset metformin AdvReac Severe Gastrointestinal Unverified 03/15/24 08:52 Upset Consultations 04/05/24 05:28 ED Decision to Admit Stat 04/05/24 08:23 Consult Cardiology Routine 04/05/24 09:45 Consult Anesthesiology Routine 04/06/24 10:36 Burn CD for patient Stat Procedures Performed Operation Date: 04/06/24 07:45 <No data on this case meets the specified criteria> Ordered Studies 04/05/24 06:18 CT angio chest PE protocol Stat Hospital Course (1) Breathlessness: Pulmonary edema Mitral valve posterior leaflet prolapse Mitral insufficiency Patient is a 73-year-old male with past medical history significant for type 2 d iabetes, hypothyroidism, hyperlipidemia, hypertension, GERD, urge incontinence, CKD stage III, history of tobacco use, adjustment disorder with anxious mood, anxiety, history of thyroid cancer, presents with ongoing anxiety and shortness of breath for 2 weeks. Treated for pneumonia and anxiety in last 3 weeks but symptoms of sob/anxiety continues to persist;So he came to the ED EKG on admission normal sinus rhythm; no ST or T wave changes Chest x-ray on admission consistent with pulmonary edema CTA chest on admission showed bilateral pleural effusion along with pulmonary edema. Patient was admitted to the hospital and underwent diuresis with IV Lasix 40 mg twice daily with improvement in symptoms of shortness of breath. He was initially started on cefepime and doxycycline which were discontinued as his symptoms were thought secondarily due to CHF secondary to mitral regurgitation. Transthoracic echocardiogram shows EF of 65 to 70% with severe prolapse of posterior mitral valve leaflet. 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 He had severe mitral regurgitation. EF was 65 to 70% Cardiology recommended expedited workup for mitral valve surgery which patient, family agreed. Cardiology arranged for transfer to [facility], accepting Dr. Yossi Jordan. Please note the above document was generated using voice recognition software. It may contain grammatical, syntax or spelling errors. Any formal questions or concerns about the content, text or information contained within the body of this dictation should be directly addressed to the provider for clarification Total Time Total Time Spent Total Time Spent (In Minutes): 45 Total Time Includes: Examination of the Patient, Discharge Planning, Medication Reconciliation, Communication With Other Providers and Other Discharge Plan Discharge Items Patient Disposition: Transfer Acute Care Hospital Reason For Visit: ANXIETY, CHEST PAIN/SOB Discharge Diagnosis: Mitral valve posterior leaflet prolapse Activity: Resume your previous activity Non-emergency contact: Primary Care Provider Call non-emergency contact if: you have any medication questions Follow-up/Referrals: Evaristo Matthews MD [Primary Care Provider] - Diet: Regular Addtl Attending Provider Instructions: You were admitted to the hospital due to shortness of breath. Echocardiogram done here in the hospital shows failure P2 scallop of posterior mitral valve leaflet with severe mitral regurgitation. You are transferred to [facility] for surgery. Addtl Sexton Helper Provider Instructions: Date of Service: April 06, 2024 Current Inpatient Medications Acetaminophen (Acetaminophen 325 Mg Tab) 650 mg PO Q4H PRN PRN Reason: Pain or Fever Stop: 05/05/24 08:22 Albuterol (Albuterol Hfa 8 Gm Inhaler) 2 puffs INH Q6H PRN PRN Reason: Shortness Of Breath Or Wheezin Stop: 05/05/24 08:22 Aspirin (Aspirin 81 Mg Ectab) 81 mg PO DAILY ANGELY Stop: 05/05/24 08:59 Last Admin: 04/06/24 09:05 Dose: 81 mg Atorvastatin Calcium (Atorvastatin 40 Mg Tab) 40 mg PO DAILY ANGELY Stop: 05/05/24 08:59 Last Admin: 04/06/24 09:05 Dose: 40 mg Dextrose (Dextrose 50% 50 Ml Syringe) 25 - 50 ml IV UD PRN; Protocol PRN Reason: Hypoglycemia Protocol Stop: 05/05/24 08:22 Escitalopram Oxalate (Escitalopram Oxalate 10 Mg Tab) 10 mg PO DAILY ANGELY Stop: 05/05/24 08:59 Last Admin: 04/06/24 09:06 Dose: 10 mg Furosemide (Furosemide Inj 20 Mg/2 Ml Vial) 20 mg IV [id number] ANGELY Stop: 05/06/24 08:59 Last Admin: 04/06/24 09:05 Dose: 20 mg Glucagon (Glucagon For Inj 1 Mg Vial) 1 mg SQ UD PRN; Protocol PRN Reason: Hypoglycemia Protocol Stop: 05/05/24 08:22 Glucose (Glucose 40% Gel 15 Gm Tube) 15 - 30 gm PO UD PRN; Protocol PRN Reason: Hypoglycemia Protocol Stop: 05/05/24 08:22 Glucose (Glucose 10 Tab/Tube) 4 - 8 tab PO UD PRN; Protocol PRN Reason: Hypoglycemia Treatment Stop: 05/05/24 08:22 Insulin Aspart (Insulin Aspart Per Unit Charge) 0 units SC ACHS ANGELY Stop: 05/05/24 16:29 Last Admin: 04/06/24 08:50 Dose: Not Given Levothyroxine Sodium (Levothyroxine Sodium 112 Mcg Tablet) 112 mcg PO DAILYBB ANGELY Stop: 05/05/24 08:59 Last Admin: 04/06/24 05:39 Dose: 112 mcg Lisinopril (Lisinopril 20 Mg Tab) 20 mg PO DAILY ANGELY Stop: 05/05/24 08:59 Last Admin: 04/06/24 09:05 Dose: 20 mg Miscellaneous (Carbohydrates For Hypoglycemia ) 15 - 30 gm PO UD PRN PRN Reason: Hypoglycemia Protocol Stop: 05/05/24 08:22 Nitroglycerin (Nitroglycerin Sl 0.4 Mg/Tab Tab) 0.4 mg SL Q5M PRN PRN Reason: Chest Pain Stop: 06/11/24 08:22 Pantoprazole Sodium (Pantoprazole 40 Mg Tab) 40 mg PO DAILY ANGELY Stop: 05/05/24 08:59 Last Admin: 04/06/24 09:05 Dose: 40 mg Polyethylene Glycol (Polyethylene (Miralax) 17 Gm Pack) 17 gm PO DAILY PRN PRN Reason: Constipation Stop: 05/05/24 08:22 Tamsulosin HCl (Tamsulosin Hcl 0.4 Mg Cap) 0.4 mg PO DAILY ANGELY Stop: 05/05/24 08:59 Last Admin: 04/06/24 09:06 Dose: 0.4 mg Pending Studies at Discharge: No Stand-Alone Forms: My [facility] Skilled Items Patient informed of condition?: No DNR: No Discharge Level of Care: Other Communicable Disease: No Discharge Prognosis: Stable Lines: Peripheral IV Urinary Catheter: No Medications and DC Order Prescriptions: Continued atorvastatin 40 mg tablet 40 mg PO DAILY trazodone 50 mg tablet 50 mg PO HS lisinopril 20 mg tablet 20 mg PO DAILY aspirin 81 mg Tablet,Delayed Release (Dr/Ec) 81 mg PO DAILY tamsulosin 0.4 mg capsule 0.4 mg PO DAILY buspirone 10 mg tablet 10 mg PO TID PRN (Reason: Anxiety) omeprazole 20 mg capsule,delayed release(DR/EC) 20 mg PO DAILY albuterol sulfate 90 mcg/actuation HFA aerosol inhaler 2 puff INHALATION Q6H PRN (Reason: Shortness Of Breath Or Wheezing) levothyroxine 112 mcg tablet 112 mcg PO DAILY escitalopram oxalate 10 mg tablet 10 mg PO DAILY Jardiance 25 mg tablet 25 mg PO DAILY Discharge Orders: Discharge Order (Routine); Ordered 04/06/24 Ordered By: Johnathan Montalvo/Other Patient Handouts: Managing Type 2 Diabetes Admission Data Admit Date/Time: 04/05/24 06:18 Attending Provider: Johnathan Tillman Admit Provider: Manish Flynn Primary Care Provider: Evaristo Matthews Other Providers: Manish Flynn; Terrance Longo; Caren Burr; Ciara Caba; Alize Acharya; Xenia Orozco; Jones Joyner; Kvng Loomis; Sanjiv Stuart; Jesús Sheridan; Yun Sheridan; Julian Doty; Caitlin Stout; Marco Encarnacion; Jarvis Pan; Akin Grover; Herve Cabrera; Sara Mann; Evaristo Franklin A; Sudha Franklin; Harjit Holt E; Ivon Avalos; Mio Calzada.; Elli Thurman; Gabi Ramsey; Mann Brennan; Brianda Xavier; Alice Rachel A; Minda Sánchez; Catina Galicia A; Smith Galicia V; Óscar Egan; Ciara James; Sadiq Lakhani; Zoila Ritchie; Smith Murry; Damion Mann; Teto Zaidi; Chacha Johnson; Gita Barrientos; Smith Carreno; Brendon Bruce.; Nata Wiley; Humphrey Rowland; Oneyda Echavarria; Eleni Figueredo; Gagandeep Pan; Sandip Cabrera; Lisa Yee; Blossom Koenig; Augusto Mckeon; Yossi Small; Jones Sullivan Jr; Bronwyn Hurst; Nory Martin A.; Helen Beltre A.; Mann Aguilar; Jesús Thomas.; Jodee Mtz S.; Nory Martinez A.; Dannie Vee; Zac Shah; Sunny Alex; Dae Peter; Santiago Garg; Sheila Trejo; Marion Joe; Krystal Higginbotham
--- NOTE | 2024-04-07 16:35 | Coding Query ---
CONGESTIVE HEART FAILURE To Promote full compliance with coding requirements relating to patient care, physician participation is requested in all cases of medical biller/coder uncertainty. Please assist us with the following questions. A diagnosis of Congestive Heart Failure is documented in the patient's medical record. To accurately code this diagnosis and to compare patient severity, we ask that you specify the type of heart failure by placing an X within the parenthesis (x). SYSTOLIC HEART FAILURE ( ) Acute ( ) Chronic ( ) Acute on Chronic ( ) Rheumatic (X) Unknown DIASTOLIC HEART FAILURE ( ) Acute ( ) Chronic ( ) Acute on Chronic ( ) Rheumatic ( X) Unknown COMBINED SYSTOLIC AND DIASTOLIC HEART FAILURE ( ) Acute ( ) Chronic ( ) Acute on Chronic ( ) Rheumatic (X ) Unknown Was the CHF Present On Admission? Please check the appropriate box: ( X) Present on Admission ( ) Not Present On Admission ( ) Clinically undetermined Thank you Gianna EDWARDS
== END 2024-04-06 15:38 | disposition short-term general hospital (02) | DRG 307 ==
LOC: ED 03:18 → 2S 06:18